=== PATIENT | female | born 1980 | race Hispanic/Latino ===

== ENCOUNTER 2017-04-10 20:49 | Emergency (ER) | payer SELFPAY ==
[2017-04-10] MEDS ORDERED: Lidocaine 1% (PF) 30 ML VIAL ONE (21:02)
[2017-04-10] MEDS ORDERED: Adacel (T-DAP) 0.5 ML VIAL ONE (21:36)
== END 2017-04-10 22:00 | disposition home or self-care (01) ==
LOC: ERS 20:49
DX: L02.31 Cutaneous abscess of buttock (principal); E11.9 Type 2 diabetes mellitus without complications; M19.90 Unspecified osteoarthritis, unspecified site; Z23 Encounter for immunization; Z79.4 Long term (current) use of insulin; Z87.891 Personal history of nicotine dependence
CPT/HCPCS: 10060; 90471; 90715; J2001

== ENCOUNTER 2017-04-13 19:26 | Emergency (ER) | payer SELFPAY | END 2017-04-13 21:34 | disposition home or self-care (01) | LOC: ERS 19:26 | DX: Z48.817 Encounter for surgical aftercare following surgery on the skin and subcutaneous tissue (principal); Z48.01 Encounter for change or removal of surgical wound dressing; E11.9 Type 2 diabetes mellitus without complications; M19.90 Unspecified osteoarthritis, unspecified site; F41.9 Anxiety disorder, unspecified; F32.9 Major depressive disorder, single episode, unspecified; F17.210 Nicotine dependence, cigarettes, uncomplicated | CPT/HCPCS: 99282 ==

== ENCOUNTER 2017-05-12 09:21 | Emergency (ER) | payer SELFPAY ==
[2017-05-12] MEDS ORDERED: Ibuprofen 200 MG TAB ONE (09:58)
--- NOTE | 2017-05-12 13:33 | RAD ---
FOUR VIEWS LEFT ELBOW: DATE: 05/12/17. History Left elbow pain for several weeks. Pain is worse after falling 1 day ago. FINDINGS: There is no evidence of a fracture, dislocation, other osseous abnormality. No joint effusion is anai reciated. IMPRESSION: No acute osseous abnormality left elbow. POS: [facility]
== END 2017-05-12 11:24 | disposition home or self-care (01) ==
LOC: ERS 09:21
DX: M77.12 Lateral epicondylitis, left elbow (principal); E11.9 Type 2 diabetes mellitus without complications; F41.9 Anxiety disorder, unspecified; F32.9 Major depressive disorder, single episode, unspecified; F17.210 Nicotine dependence, cigarettes, uncomplicated; Z79.4 Long term (current) use of insulin
CPT/HCPCS: 99406

== ENCOUNTER 2017-06-30 05:26 | Inpatient (IN) | payer SELFPAY ==
[2017-06-30] MEDS ORDERED: Ondansetron HCl/PF 4 MG/2 ML Vial ONE (05:42)
[2017-06-30 05:59] LABS: #Basophils 0.1 thou/uL (0.0-0.2); #Lymphocytes 1.9 thou/uL (1.20-3.40); #Monocytes 0.9 thou/uL (0.11-0.59); #Neutrophils 13.9 thou/uL (1.40-6.50); %Basophils 0.4 % (0.0-1.0); %Eosinophils 0.2 % (0.0-10.0); %Lymphocytes 11.5 % (21.0-51.0); %Monocytes 5.5 % (0.0-10.0); %Neutrophils 82.5 % (42.0-75.0); Hemoglobin 17.9 g/dL (12.0-16.0); Mean Corpuscular HGB CONC 34.4 g/dL (32.0-36.0); Mean Corpuscular Hemoglobin 31.6 pg (27.0-31.0); Mean Platelet Volume 8.3 fL (7.4-10.4); Platelet Count 329 thou/uL (130-400); RBC Distribution Width 11.6 % (11.5-14.5); Red Blood Cell (RBC) Count 5.65 mill/uL (4.20-5.40); White Blood Cell (WBC) Count 16.8 thou/uL (4.8-10.8)
[2017-06-30 06:11] LABS: Base Excess-Venous -0.3 mmol/L (-30.0-30.0); Bicarbonate (HCO3v) 20.6 mmol/L (1.0-85.0); CO2 Tension (PvCO2) 25.9 mmHg (41.0-51.0); Calcium, Ionized 1.02 mmol/L (1.12-1.32); Hemoglobin - Calc 18.8 g/dL (12.0-18.0); Lactate 3.37 mmol/L (0.50-2.20); O2 Tension (PvO2) 40.6 mmHg (35.0-45.0); Potassium 3.8 mmol/L (3.4-4.7); T. Carbon Dioxide 21.4 mmol/L (1.0-85.0); vO2 Saturation-calc 82.1 % (0.0-100.0)
[2017-06-30 06:20] LABS: ALT (SGPT) 15 U/L (8-55); AST (SGOT) 13 U/L (5-34); Albumin 4.6 g/dL (3.5-5.0); Alkaline Phosphatase 106 U/L (40-150); Anion Gap 23 mmol/L (10-20); BUN (Urea Nitrogen) 16 mg/dL (7.0-18.7); Bilirubin, Total 2.1 mg/dL (0.2-1.2); Calc. Creatinine Clearance 0 mL/min (70-130); Calcium 10.3 mg/dL (7.8-10.44); Carbon Dioxide 20 mmol/L (22-29); Chloride 98 mmol/L (98-107); Estimated GFR-MDRD 75; Globulin 3.6 g/dL (2.4-3.5); Glucose 342 mg/dL (70-105); Potassium 4.2 mmol/L (3.5-5.1); Protein, Total 8.2 g/dL (6.0-8.3); Sodium 137 mmol/L (136-145)
[2017-06-30 06:21] LABS: BHCG - Serum Negative (NEGATIVE); Pregs Control Background? CLEAR/WHITE (CLR/WHITE); Pregs Control Bar Appear? YES (CONTROL BAR)
[2017-06-30 06:32] LABS: Acetaminophen Less than 6.0 mcg/mL (10.0-30.0); Alcohol Less than 10 mg/dL (Less than 10); Salicylate Less than 8.0 mg/dL (15.0-30.0)
[2017-06-30] MEDS ORDERED: Pantoprazole 40 MG VIAL ONE (06:35)
[2017-06-30] MEDS ORDERED: Metoclopramide HCl 10 MG/2 ML VIAL ONE (06:35)
[2017-06-30] MEDS ORDERED: diphenhydrAMINE 50 MG/ML VIAL ONE (06:35)
[2017-06-30] MEDS ORDERED: Insulin Regular 300 UNITS/3 ML VIAL ONE (07:52)
--- NOTE | 2017-06-30 09:09 | ULT ---
RIGHT UPPER QUADRANT ULTRASOUND: Date: 06/30/17 HISTORY: 37-year-old female with history of nausea and vomiting. FINDINGS: There is a nonmobile opacity with ring down artifact from the fundus of the gallbladder, possib ly a focal cholesterol polyp. No gallbladder wall thickening or pericholecystic fluid. Common bile du ct is 0.4 cm. Liver echogenicity is somewhat coarse. Visualized pancreas and right kidney are unremar kable. IMPRESSION: Possible small gallbladder cholesterol polyp. No overt gallstones or evidence for acute cholecystitis by ultrasound. No ductal dilatation. Coarse liver echogenicity. POS: [facility]
[2017-06-30 09:17] VITALS: BMI 23.7
[2017-06-30] MEDS ORDERED: Temazepam 15 MG CAP PO PRN (09:22)
[2017-06-30] MEDS ORDERED: hydrALAZINE 20 MG/ML VIAL SLOW IVP PRN (09:22)
[2017-06-30] MEDS ORDERED: Acetaminophen 325 MG TAB PO PRN (09:22)
[2017-06-30] MEDS ORDERED: Dextrose 5% in Water 1,000 ML IV PRN (09:22)
[2017-06-30] MEDS ORDERED: HYDROcodone/Acetaminophen 5/325 mg Tablet PO PRN (09:22)
[2017-06-30] MEDS ORDERED: Dextrose 50% Abboject 50 ML SYRINGE SLOW IVP PRN (09:22)
[2017-06-30] MEDS ORDERED: Docusate 100 MG CAP PO SCH (09:45)
[2017-06-30] MEDS ORDERED: Insulin Detemir 100 UNITS/ML 7 UNITS in Pre-Filled Syringe 1 EACH SC SCH (09:45)
[2017-06-30] MEDS: Sodium Chloride 0.9% 1,000 ML IV SCH ×2 (09:53→18:21)
[2017-06-30] MEDS: cefTRIAXone\\ROCEPHIN 2 GM in Sodium Chloride 0.9% 100 ML IVPB SCH (11:04)
[2017-06-30] MEDS: Metoclopramide HCl 10 MG/2 ML VIAL IVP SCH ×4 (11:37→21:21)
[2017-06-30 15:42] LABS: Bilirubin Negative (Negative); Blood, Urine Negative (Negative); Clarity CLOUDY (Clear); Glucose, Urine (Dipstick) >=1000 mg/dL (Negative); Leukocyte Small (Negative); Nitrite Negative (Negative); Protein, Urine (Dipstick) Trace mg/dL (Neg-Trace); Specific Gravity, Urine 1.029 (1.002-1.036); pH, Urine 6.5 (5.0-9.0)
[2017-06-30 15:45] LABS: Bacteria/HPF 4+ HPF (None Seen); Hyaline Casts/LPF 0-3 HYALINE CAST LPF (0-3 Hyaline); Squamous Epithelial 0-3 HPF (0-3)
[2017-06-30 15:47] LABS: Amphetamine Not Detected (NotDetected); Barbiturates Screen Not Detected (NotDetected); Benzodiazepine Screen Not Detected (NotDetected); Cocaine Metabolite Screen Detected (NotDetected); Medtox Control Line Valid? VALID (VALID); Medtox Reader # READER 4; Methadone Not Detected (NotDetected); Methamphetamine Not Detected (NotDetected); Opiate Screen Not Detected (NotDetected); Oxycodone Screen Not Detected (NotDetected); Phencyclidine (PCP) Not Detected (NotDetected); THC/Cannabinoid Screen Not Detected (NotDetected); Tricyclic Screen Not Detected (NotDetected)
[2017-06-30] MEDS: Insulin Detemir 100 UNITS/ML 7 UNITS in Pre-Filled Syringe 1 EACH SC SCH (21:23)
[2017-06-30] MEDS: Docusate 100 MG CAP PO SCH (21:23)
[2017-06-30] MEDS: Ondansetron HCl/PF 4 MG/2 ML Vial IVP PRN (23:30)
--- NOTE | 2017-07-01 01:03 | HP ---
CHIEF COMPLAINT: Nausea, vomiting and abdominal discomfort for the last 2 or 3 days. HISTORY OF PRESENT ILLNESS: This is a 37-year-old pleasant lady who was apparently in her usual stat e of health, came into the hospital with nausea, vomiting and abdominal pain, which got worse over e last 2 or 3 days. She uses insulin to control her diabetes, but over the last couple of days, when she checked her sugar, it was above 500. Because of the nausea and vomiting was not relieved and e cannot keep any food down, she came into the hospital for further evaluation and treatment. She de nies any cough, chest pain, diarrhea or dysuria. No fever, no chills. PAST MEDICAL HISTORY: Significant for diabetes, osteoarthritis and anxiety. ALLERGIES: SULFA. MEDICATIONS: Insulin, she does not know the name. She has used Lantus in the past. PAST SURGICAL HISTORY: Right inguinal surgery to remove abscess. SOCIAL HISTORY: Patient denies history of drug abuse, cocaine and opiates in the past. She admits o f snorting cocaine even a couple of days prior, tobacco use and also occasional alcohol use. FAMILY HISTORY: Negative for diabetes and hypertension. REVIEW OF SYSTEMS: Significant for nausea, vomiting and abdominal pain, otherwise no fever, no chill s, no headache, no appetite, no hearing loss, no latencies. No cough, no diarrhea, dysuria or polyur ia. No memory or mood changes. No neck pain. PHYSICAL EXAMINATION: VITAL SIGNS: Blood pressure is 127/81, breathing at 26 per minute, afebrile and pulse is 84. GENERAL: The patient is lying in bed in no apparent distress. HEENT: Atraumatic and normocephalic. Pupils are equal, round and reacting to light. Extraocular mo vements are intact. Mucous membranes are moist. NECK: Supple. No JVD. CHEST: Breath sounds heard. No rales or rhonchi. HEART: S1 and S2. No murmurs or gallops. ABDOMEN: Soft, some generalized mild tenderness. Bowel sounds are present. No guarding, no rigidit y. EXTREMITIES: No cyanosis, clubbing or edema. Distal pulses present. NEUROLOGIC: Alert, awake and oriented. No cranial deficits. No sensorimotor deficits. LABORATORY DATA: CK is 34, potassium is 4.2, creatinine is 0.8 and total bilirubin is 2.1. WBC coun t is 16.8 and hemoglobin is 17. PH is 7.5. ASSESSMENT AND PLAN: 1. Nausea, vomiting and abdominal pain, possibly secondary to impending diabetic ketoacidosis. The patient is feeling a little better after she got a couple of liters of bolus in the ER and some insul in and some symptomatic treatment for the nausea and vomiting at this point, but she is not in clear diabetic ketoacidosis. We will admit her to medical floor and aggressively hydrate her and put her o n insulin regimen long-acting and also insulin sliding scale. We will monitor her closely and the BM Ps closely to see if she gets into diabetic ketoacidosis and do the need for. 2. Elevated WBC count. We will follow urinalysis and chest x-ray to make sure she does not have any infection. We will empirically treat with Rocephin for now. 3. Tobacco use. She has been counseled on cocaine use. She has been counseled on alcohol use. 4. Sequential compression devices for deep venous thrombosis prophylaxis. I will follow the patient and make recommendations as clinical course evolves.
[2017-07-01] MEDS: Sodium Chloride 0.9% 1,000 ML IV SCH ×3 (01:30→18:20)
[2017-07-01] MEDS: Metoclopramide HCl 10 MG/2 ML VIAL IVP SCH ×2 (01:30→05:53)
[2017-07-01 04:12] LABS: #Lymphocytes 1.6 thou/uL (1.20-3.40); #Monocytes 0.8 thou/uL (0.11-0.59); #Neutrophils 8.6 thou/uL (1.40-6.50); %Basophils 0.4 % (0.0-1.0); %Eosinophils 0.4 % (0.0-10.0); %Lymphocytes 14.1 % (21.0-51.0); %Monocytes 6.9 % (0.0-10.0); %Neutrophils 78.3 % (42.0-75.0); Hemoglobin 14.8 g/dL (12.0-16.0); Mean Corpuscular HGB CONC 33.9 g/dL (32.0-36.0); Mean Corpuscular Hemoglobin 31.9 pg (27.0-31.0); Mean Corpuscular Volume 94.1 fl (81.0-99.0); Mean Platelet Volume 8.1 fL (7.4-10.4); Platelet Count 254 thou/uL (130-400); RBC Distribution Width 11.7 % (11.5-14.5); Red Blood Cell (RBC) Count 4.64 mill/uL (4.20-5.40)
[2017-07-01 04:31] LABS: ALT (SGPT) 10 U/L (8-55); AST (SGOT) 11 U/L (5-34); Albumin 3.6 g/dL (3.5-5.0); Alkaline Phosphatase 66 U/L (40-150); Anion Gap 13 mmol/L (10-20); BUN (Urea Nitrogen) 11 mg/dL (7.0-18.7); Bilirubin, Total 1.1 mg/dL (0.2-1.2); Calc. Creatinine Clearance 96 mL/min (70-130); Calcium 8.2 mg/dL (7.8-10.44); Carbon Dioxide 21 mmol/L (22-29); Chloride 105 mmol/L (98-107); Estimated GFR-MDRD Greater than 90; Globulin 2.8 g/dL (2.4-3.5); Glucose 246 mg/dL (70-105); Potassium 3.5 mmol/L (3.5-5.1); Protein, Total 6.4 g/dL (6.0-8.3); Sodium 135 mmol/L (136-145)
[2017-07-01] MEDS: Ondansetron HCl/PF 4 MG/2 ML Vial IVP PRN ×2 (09:05→18:12)
[2017-07-01] MEDS: Insulin Detemir 100 UNITS/ML 7 UNITS in Pre-Filled Syringe 1 EACH SC SCH ×2 (09:11→20:54)
[2017-07-01] MEDS: Docusate 100 MG CAP PO SCH ×2 (09:11→20:54)
[2017-07-01] MEDS ORDERED: Potassium Chloride 20 MEQ TAB PO SCH (11:45)
[2017-07-01] MEDS: cefTRIAXone\\ROCEPHIN 2 GM in Sodium Chloride 0.9% 100 ML IVPB SCH (11:49)
--- NOTE | 2017-07-01 12:32 | PDOC.PN ---
- Subjective Encounter Start Date: 07/01/17 Encounter Start Time: 12:31 Patient seen and examined. No new complaints. No overnight events - Objective MAR Reviewed: Yes Vital Signs & Weight: Vital Signs (12 hours) Temp Pulse Resp BP Pulse Ox 07/01/17 11:19 98.3 F 67 16 137/87 100 07/01/17 08:07 99.2 F 91 16 109/71 97 07/01/17 08:00 99.2 F 91 16 97 07/01/17 04:00 98.8 F 87 16 127/79 98 Weight Weight 117 lb 7 oz I&O: 06/30/17 07/01/17 07/02/17 06:59 06:59 06:59 Intake Total 3335 Output Total 900 Balance 2435 Result Diagrams: 07/01/17 03:50 07/01/17 03:50 Additional Labs: Accuchecks 07/01/17 07/01/17 06/30/17 11:19 05:40 19:22 POC Glucose 215 H 185 H 187 H 06/30/17 16:18 POC Glucose 182 H Phys Exam - Physical Examination Constitutional: NAD HEENT: PERRLA Neck: no JVD Respiratory: no rales Cardiovascular: no significant murmur Gastrointestinal: no distention Musculoskeletal: pulses present Neurological: moves all 4 limbs Psychiatric: A&O x 3 Dx/Plan (1) UTI (urinary tract infection) Status: Acute (2) Cocaine abuse Code(s): F14.10 - COCAINE ABUSE, UNCOMPLICATED Status: Acute (3) Diabetes mellitus Code(s): E11.9 - TYPE 2 DIABETES MELLITUS WITHOUT COMPLICATIONS Status: Acute (4) Nausea & vomiting Code(s): R11.2 - NAUSEA WITH VOMITING, UNSPECIFIED Status: Acute - Plan * cont current rx * f/u urine cul
[2017-07-01 12:50] LABS: Anion Gap 12 mmol/L (10-20); BUN (Urea Nitrogen) 9 mg/dL (7.0-18.7); Calc. Creatinine Clearance 101 mL/min (70-130); Calcium 8.6 mg/dL (7.8-10.44); Carbon Dioxide 24 mmol/L (22-29); Chloride 104 mmol/L (98-107); Estimated GFR-MDRD Greater than 90; Glucose 230 mg/dL (70-105); Sodium 136 mmol/L (136-145)
[2017-07-01] MEDS ORDERED: Metoclopramide HCl 10 MG/2 ML VIAL IVP SCH (20:30)
[2017-07-02 05:04] LABS: #Monocytes 0.8 thou/uL (0.11-0.59); %Basophils 0.5 % (0.0-1.0); %Eosinophils 0.4 % (0.0-10.0); %Lymphocytes 22.8 % (21.0-51.0); %Monocytes 8.8 % (0.0-10.0); %Neutrophils 67.5 % (42.0-75.0); Hemoglobin 14.5 g/dL (12.0-16.0); Mean Corpuscular HGB CONC 33.9 g/dL (32.0-36.0); Mean Corpuscular Hemoglobin 31.9 pg (27.0-31.0); Mean Corpuscular Volume 94.1 fl (81.0-99.0); Mean Platelet Volume 8.2 fL (7.4-10.4); Platelet Count 240 thou/uL (130-400); RBC Distribution Width 11.4 % (11.5-14.5); Red Blood Cell (RBC) Count 4.53 mill/uL (4.20-5.40); White Blood Cell (WBC) Count 8.8 thou/uL (4.8-10.8)
[2017-07-02] MEDS: Insulin Detemir 100 UNITS/ML 7 UNITS in Pre-Filled Syringe 1 EACH SC SCH ×2 (08:14→20:18)
[2017-07-02] MEDS: Docusate 100 MG CAP PO SCH ×2 (08:14→20:10)
[2017-07-02] MEDS: cefTRIAXone\\ROCEPHIN 2 GM in Sodium Chloride 0.9% 100 ML IVPB SCH (09:32)
[2017-07-02] MEDS: Ondansetron HCl/PF 4 MG/2 ML Vial IVP PRN ×2 (10:58→20:13)
[2017-07-02] MEDS: HumaLOG 300 UNITS/3 ML VIAL SC PRN ×3 (12:18→20:18)
[2017-07-02] MEDS: Sodium Chloride 0.9% 1,000 ML IV SCH ×2 (12:18→20:09)
[2017-07-02 12:30] LABS: Anion Gap 15 mmol/L (10-20); BUN (Urea Nitrogen) 8 mg/dL (7.0-18.7); Calc. Creatinine Clearance 107 mL/min (70-130); Calcium 8.4 mg/dL (7.8-10.44); Carbon Dioxide 20 mmol/L (22-29); Chloride 104 mmol/L (98-107); Estimated GFR-MDRD Greater than 90; Glucose 191 mg/dL (70-105); Potassium 4.1 mmol/L (3.5-5.1); Sodium 135 mmol/L (136-145)
--- NOTE | 2017-07-02 17:34 | PDOC.PN ---
- Subjective Encounter Start Date: 07/02/17 Encounter Start Time: 17:33 Patient seen and examined. No new complaints. No overnight events - Objective MAR Reviewed: Yes Vital Signs & Weight: Vital Signs (12 hours) Temp Pulse Resp BP Pulse Ox 07/02/17 08:00 99.0 F 94 16 103/73 97 Weight Weight 117 lb 7 oz I&O: 07/01/17 07/02/17 07/03/17 06:59 06:59 06:59 Intake Total 3335 120 Output Total 900 Balance 2435 120 Result Diagrams: 07/02/17 04:17 07/02/17 04:17 Additional Labs: Accuchecks 07/02/17 07/02/17 07/02/17 16:36 11:25 05:06 POC Glucose 182 H 251 H 180 H 07/01/17 20:03 POC Glucose 173 H Phys Exam - Physical Examination Constitutional: NAD HEENT: PERRLA Neck: no JVD Respiratory: no wheezing Cardiovascular: no significant murmur Gastrointestinal: non-tender Musculoskeletal: pulses present Neurological: moves all 4 limbs Psychiatric: A&O x 3 Dx/Plan (1) UTI (urinary tract infection) Status: Acute (2) Cocaine abuse Code(s): F14.10 - COCAINE ABUSE, UNCOMPLICATED Status: Acute (3) Diabetes mellitus Code(s): E11.9 - TYPE 2 DIABETES MELLITUS WITHOUT COMPLICATIONS Status: Acute (4) Nausea & vomiting Code(s): R11.2 - NAUSEA WITH VOMITING, UNSPECIFIED Status: Acute - Plan * cont current rx * f/u cultures
[2017-07-03] MEDS ORDERED: Guaifenesin DM 100-10/5 ML UDCUP PO PRN ×2 (03:08→03:09)
[2017-07-03 05:18] LABS: #Lymphocytes 2.6 thou/uL (1.20-3.40); #Monocytes 0.6 thou/uL (0.11-0.59); #Neutrophils 4.3 thou/uL (1.40-6.50); %Basophils 0.6 % (0.0-1.0); %Eosinophils 0.4 % (0.0-10.0); %Lymphocytes 34.2 % (21.0-51.0); %Monocytes 8.4 % (0.0-10.0); %Neutrophils 56.5 % (42.0-75.0); Mean Corpuscular HGB CONC 34.6 g/dL (32.0-36.0); Mean Corpuscular Hemoglobin 32.4 pg (27.0-31.0); Mean Corpuscular Volume 93.7 fl (81.0-99.0); Mean Platelet Volume 8.4 fL (7.4-10.4); Platelet Count 215 thou/uL (130-400); RBC Distribution Width 11.4 % (11.5-14.5); Red Blood Cell (RBC) Count 4.31 mill/uL (4.20-5.40); White Blood Cell (WBC) Count 7.6 thou/uL (4.8-10.8)
[2017-07-03] MEDS: HumaLOG 300 UNITS/3 ML VIAL SC PRN ×2 (05:47→11:55)
[2017-07-03] MEDS: Insulin Detemir 100 UNITS/ML 7 UNITS in Pre-Filled Syringe 1 EACH SC SCH (07:23)
[2017-07-03] MEDS: Docusate 100 MG CAP PO SCH (07:24)
[2017-07-03 08:41] VITALS: BP 93/61; TEMP 98.2
[2017-07-03] MEDS ORDERED: CEFTRIAXONE 2GM/50 ML BAG 2 GM in Premix Bag 1 BAG IVPB SCH (10:00)
--- NOTE | 2017-07-03 13:29 | PDOC.PN ---
- Subjective Encounter Start Date: 07/03/17 Encounter Start Time: 13:27 Patient seen and examined. No new complaints. No overnight events - Objective MAR Reviewed: Yes Vital Signs & Weight: Vital Signs (12 hours) Temp Pulse Resp BP Pulse Ox 07/03/17 08:00 98.2 F 73 16 98 07/03/17 07:40 98.2 F 73 16 93/61 98 Weight Weight 117 lb 7 oz I&O: 07/02/17 07/03/17 07/04/17 06:59 06:59 06:59 Intake Total 120 Balance 120 Result Diagrams: 07/03/17 04:35 07/02/17 04:17 Additional Labs: Accuchecks 07/03/17 07/03/17 07/02/17 11:46 04:16 20:19 POC Glucose 209 H 242 H 263 H 07/02/17 16:36 POC Glucose 182 H Phys Exam - Physical Examination Constitutional: NAD HEENT: PERRLA Neck: no JVD Respiratory: no rales Cardiovascular: no significant murmur Gastrointestinal: non-tender Musculoskeletal: pulses present Neurological: moves all 4 limbs Psychiatric: A&O x 3 Dx/Plan (1) UTI (urinary tract infection) Status: Acute Comment: culture negative (2) Cocaine abuse Code(s): F14.10 - COCAINE ABUSE, UNCOMPLICATED Status: Acute (3) Diabetes mellitus Code(s): E11.9 - TYPE 2 DIABETES MELLITUS WITHOUT COMPLICATIONS Status: Acute (4) Nausea & vomiting Code(s): R11.2 - NAUSEA WITH VOMITING, UNSPECIFIED Status: Acute - Plan * doing well * d/c home
--- NOTE | 2017-07-03 20:50 | DIS ---
DATE OF ADMISSION: 06/30/2017 DATE OF DISCHARGE: 07/03/2017 DISCHARGE DIAGNOSES: Urinary tract infection, resolved; nausea, vomiting, abdominal pain, resolved; elevated white count, resolved; tobacco use, resolved; cocaine use, resolved. DISCHARGE MEDICATIONS: Include Lantus 10 units subcu b.i.d., metformin 1000 mg p.o. once a day and c ontinuation of all other home medications. BRIEF HOSPITAL COURSE: A 37-year-old pleasant lady who came into the hospital with uncontrolled suga rs and elevated white count, nausea, vomiting, abdominal pain. She was also tested positive for coca ine. She was put on aggressive IV hydration and we put her on Levemir and insulin sliding scale. On ce her diet picked up, we adjusted the dose of the long-acting insulin. Right now, her urine culture s and blood cultures were all negative. She is doing much better. Abdominal pain, nausea and vomiti ng had resolved. She is right now medically stable to be discharged with outpatient follow up with Germaine JOHNSON. She is asked to come back to the emergency room in case symptoms recur. Total time for this discharge took 35 minutes.
[2017-07-03] MEDS ORDERED: Insulin Detemir 100 UNITS/ML 10 UNITS in Pre-Filled Syringe 1 EACH SC SCH (21:00)
== END 2017-07-03 14:12 | disposition home or self-care (01) | DRG 638 ==
LOC: ERS 05:26 → T4-A 09:11
PROVIDERS: ADMIT Internal Medicine; ATTEND Internal Medicine
DX: E11.65 Type 2 diabetes mellitus with hyperglycemia (principal); N39.0 Urinary tract infection, site not specified; D72.829 Elevated white blood cell count, unspecified; F14.10 Cocaine abuse, uncomplicated; F17.210 Nicotine dependence, cigarettes, uncomplicated; Z88.2 Allergy status to sulfonamides
CPT/HCPCS: 36415; 36416; 76705; 80048; 80053; 80306; 80307; 81001; 82010; 82330; 82550; 82803; 83605; 84703; 85025; 87040; 87086; 96361; 96374; 96375; 99406; C9113; J0696; J1200; J1815; J2405; J2765; J7050

== ENCOUNTER 2017-09-23 07:45 | Emergency (ER) | payer SELFPAY, OTHER | END 2017-09-23 08:40 | disposition home or self-care (01) | LOC: ERS 07:45 | DX: T63.301A Toxic effect of unspecified spider venom, accidental (unintentional), initial encounter; F17.210 Nicotine dependence, cigarettes, uncomplicated; M19.90 Unspecified osteoarthritis, unspecified site; E11.9 Type 2 diabetes mellitus without complications; F32.9 Major depressive disorder, single episode, unspecified; F41.9 Anxiety disorder, unspecified | CPT/HCPCS: 99282 ==

== ENCOUNTER 2017-10-08 13:39 | Emergency (ER) | payer SELFPAY ==
--- NOTE | 2017-10-08 14:41 | RAD ---
THREE VIEWS 5TH DIGIT RIGHT HAND: HISTORY: Swelling and redness. FINDINGS: AP, lateral, and oblique views 5th digit right hand obtained. Images demonstrate soft tissue swelling involving the distal aspect of the 5th digit. No evidence of acute fractures, subluxations, or bony lesions seen. No osseous lesion is noted. IMPRESSION: Soft tissue swelling distal 5th digit. No acute abnormalities seen. POS: [facility]
== END 2017-10-08 15:02 | disposition home or self-care (01) ==
LOC: ERS 13:39
DX: L03.011 Cellulitis of right finger (principal); E11.9 Type 2 diabetes mellitus without complications; M19.90 Unspecified osteoarthritis, unspecified site; F31.9 Bipolar disorder, unspecified; F41.9 Anxiety disorder, unspecified; F17.210 Nicotine dependence, cigarettes, uncomplicated; Z79.4 Long term (current) use of insulin; Z79.899 Other long term (current) drug therapy
CPT/HCPCS: 10060; 87070; 87205

== ENCOUNTER 2018-04-02 09:39 | Emergency (ER) | payer OTHER, SELFPAY | END 2018-04-02 11:16 | disposition left against medical advice (07) | LOC: ERS 09:39 | DX: Z53.21 Procedure and treatment not carried out due to patient leaving prior to being seen by health care provider (principal) ==

== ENCOUNTER 2018-04-20 11:44 | Emergency (ER) | payer SELFPAY ==
[2018-04-20] MEDS ORDERED: Lidocaine 1% (PF) 30 ML VIAL ONE (12:21)
[2018-04-20 12:46] LABS: Bilirubin Negative (Negative); Blood, Urine Trace (Negative); Clarity CLEAR (Clear); Glucose, Urine (Dipstick) >=1000 mg/dL (Negative); Leukocyte Negative (Negative); Nitrite Negative (Negative); Protein, Urine (Dipstick) Negative (Neg-Trace); Urobilinogen 0.2 mg/dL (0.2-1.0); pH, Urine 6.5 (5.0-9.0)
[2018-04-20 12:48] LABS: Bacteria/HPF 2+ HPF (None Seen); Hyaline Casts/LPF 0-3 HYALINE CAST LPF (0-3 Hyaline); RBC/HPF 0-3 HPF (0-3); Squamous Epithelial 0-3 HPF (0-3)
[2018-04-20 12:50] LABS: Pregnancy Test - Urine (BHCG) Negative (Negative); Pregu Control Background? CLEAR/WHITE (CLR/WHITE); Pregu Control Bar Appear? YES (CONTROL BAR)
[2018-04-20 13:27] LABS: #Lymphocytes 1.6 thou/uL (1.20-3.40); #Monocytes 0.5 thou/uL (0.11-0.59); #Neutrophils 7.1 thou/uL (1.40-6.50); %Basophils 0.4 % (0.0-1.0); %Eosinophils 0.4 % (0.0-10.0); %Lymphocytes 17.4 % (21.0-51.0); %Monocytes 5.6 % (0.0-10.0); %Neutrophils 76.2 % (42.0-75.0); Hemoglobin 15.5 g/dL (12.0-16.0); Mean Corpuscular HGB CONC 34.1 g/dL (32.0-36.0); Mean Corpuscular Hemoglobin 32.3 pg (27.0-31.0); Mean Corpuscular Volume 94.5 fL (78.0-98.0); Platelet Count 273 thou/uL (130-400); RBC Distribution Width 12.1 % (11.5-14.5); Red Blood Cell (RBC) Count 4.82 mill/uL (4.20-5.40); White Blood Cell (WBC) Count 9.3 thou/uL (4.8-10.8)
[2018-04-20 13:45] LABS: ALT (SGPT) 13 U/L (8-55); AST (SGOT) 18 U/L (5-34); Albumin 3.9 g/dL (3.5-5.0); Alkaline Phosphatase 76 U/L (40-150); Anion Gap 17 mmol/L (10-20); BUN (Urea Nitrogen) 11 mg/dL (7.0-18.7); Bilirubin, Total 0.5 mg/dL (0.2-1.2); Calc. Creatinine Clearance 0 mL/min (70-130); Calcium 8.6 mg/dL (7.8-10.44); Carbon Dioxide 20 mmol/L (22-29); Chloride 97 mmol/L (98-107); Estimated GFR-MDRD 58; Globulin 3.8 g/dL (2.4-3.5); Lipase 50 U/L (8-78); Potassium 4.6 mmol/L (3.5-5.1); Protein, Total 7.7 g/dL (6.0-8.3); Sodium 129 mmol/L (136-145)
[2018-04-20 13:47] LABS: Base Excess-Venous 0.2 mmol/L (0 (+/- 2.5)); Bicarbonate (HCO3v) 24.9 mmol/L (1.0-85.0); CO2 Tension (PvCO2) 39.7 mmHg (41.0-51.0); Calcium, Ionized 1.09 mmol/L (1.12-1.32); Hemoglobin - Calc 17.1 g/dL (12.0-18.0); O2 Tension (PvO2) 48.3 mmHg (35.0-45.0); Potassium 4.3 mmol/L (3.4-4.7); T. Carbon Dioxide 26.1 mmol/L (1.0-85.0); pH (Venous) 7.405 (7.35-7.45); vO2 Saturation-calc 83.9 % (94-98)
[2018-04-20 13:49] LABS: Glucose 694 mg/dL (70-105)
[2018-04-20] MEDS ORDERED: cefTRIAXone\\ROCEPHIN 2 GM VIAL ONE (14:09)
[2018-04-20] MEDS ORDERED: Sodium Chloride 0.9% 100 ML ONE (14:09)
[2018-04-20] MEDS ORDERED: Triple Antibiotic Oint 1 GM Packet ONE (14:09)
[2018-04-20] MEDS ORDERED: Insulin Regular 300 UNITS/3 ML VIAL ONE (14:15)
--- NOTE | 2018-04-20 14:18 | RAD ---
LEFT FOOT 3 VIEWS: HISTORY: Left foot pain. Wound in the left foot. The patient is a diabetic. FINDINGS/IMPRESSION: No fracture, dislocation, bony destruction, or periosteal reaction is seen. If there is high clinical suspicion for osteomyelitis, further evaluation with MRI would be helpful. POS: [facility]
[2018-04-20] MEDS ORDERED: Acetaminophen 500 MG TAB ONE (15:25)
== END 2018-04-20 15:56 | disposition home or self-care (01) ==
LOC: ERS 11:44
DX: L08.9 Local infection of the skin and subcutaneous tissue, unspecified (principal); E11.622 Type 2 diabetes mellitus with other skin ulcer; M19.90 Unspecified osteoarthritis, unspecified site; F31.9 Bipolar disorder, unspecified; F41.9 Anxiety disorder, unspecified; F17.210 Nicotine dependence, cigarettes, uncomplicated; Z79.84 Long term (current) use of oral hypoglycemic drugs; Z79.899 Other long term (current) drug therapy
CPT/HCPCS: 10060; 36415; 36416; 80053; 81003; 81015; 81025; 82010; 82330; 82803; 83690; 85025; 87040; 87070; 87077; 87149; 87186; 87205; 96361; 96365; 96375; J0696; J1815; J2001; J7050

== ENCOUNTER 2018-06-19 13:27 | Emergency (ER) | payer SELFPAY ==
[2018-06-19] MEDS ORDERED: Lidocaine 1% (PF) 30 ML VIAL ONE (14:22)
== END 2018-06-19 14:49 | disposition home or self-care (01) ==
LOC: ERS 13:27
DX: L02.31 Cutaneous abscess of buttock (principal); E11.9 Type 2 diabetes mellitus without complications; F31.9 Bipolar disorder, unspecified; F41.9 Anxiety disorder, unspecified; F32.9 Major depressive disorder, single episode, unspecified; F17.210 Nicotine dependence, cigarettes, uncomplicated; Z79.4 Long term (current) use of insulin
CPT/HCPCS: 10061; J2001

== ENCOUNTER 2018-09-08 17:48 | Emergency (ER) | payer SELFPAY ==
[2018-09-08 18:29] LABS: #Basophils 0.1 thou/uL (0.0-0.2); #Lymphocytes 2.5 thou/uL (1.20-3.40); #Monocytes 0.8 thou/uL (0.11-0.59); #Neutrophils 8.5 thou/uL (1.40-6.50); %Basophils 0.4 % (0.0-1.0); %Eosinophils 0.3 % (0.0-10.0); %Lymphocytes 21.2 % (21.0-51.0); %Monocytes 6.4 % (0.0-10.0); %Neutrophils 71.7 % (42.0-75.0); Hemoglobin 14.7 g/dL (12.0-16.0); Mean Corpuscular HGB CONC 34.2 g/dL (32.0-36.0); Mean Corpuscular Hemoglobin 32.1 pg (27.0-31.0); Mean Corpuscular Volume 93.7 fL (78.0-98.0); Platelet Count 273 thou/uL (130-400); RBC Distribution Width 11.9 % (11.5-14.5); Red Blood Cell (RBC) Count 4.57 mill/uL (4.20-5.40); White Blood Cell (WBC) Count 11.9 thou/uL (4.8-10.8)
[2018-09-08 18:43] LABS: Bilirubin Negative (Negative); Blood, Urine Trace (Negative); Clarity CLEAR (Clear); Glucose, Urine (Dipstick) >=1000 mg/dL (Negative); Leukocyte Negative (Negative); Nitrite Negative (Negative); Protein, Urine (Dipstick) Negative (Neg-Trace); Specific Gravity, Urine 1.038 (1.002-1.036)
[2018-09-08 18:44] LABS: Bacteria/HPF None Seen HPF (None Seen); Hyaline Casts/LPF 0-3 HYALINE CAST LPF (0-3 Hyaline); Pathc Cast-AUWi Flag 0.13 (0-2.49); Pregnancy Test - Urine (BHCG) Negative (Negative); Pregu Control Background? CLEAR/WHITE (CLR/WHITE); Pregu Control Bar Appear? YES (CONTROL BAR); Specific Gravity 1.038 (1.002-1.036); Squamous Epithelial 0-3 HPF (0-3); WBC/HPF 21-50 HPF (0-3)
[2018-09-08 18:47] LABS: ALT (SGPT) 16 U/L (8-55); AST (SGOT) 17 U/L (5-34); Albumin 3.5 g/dL (3.5-5.0); Alkaline Phosphatase 74 U/L (40-150); Anion Gap 12 mmol/L (10-20); BUN (Urea Nitrogen) 13 mg/dL (7.0-18.7); Bilirubin, Total 0.4 mg/dL (0.2-1.2); Calc. Creatinine Clearance 0 mL/min (70-130); Calcium 8.4 mg/dL (7.8-10.44); Carbon Dioxide 24 mmol/L (22-29); Chloride 105 mmol/L (98-107); Estimated GFR-MDRD 83; Globulin 2.9 g/dL (2.4-3.5); Glucose 303 mg/dL (70-105); Potassium 3.6 mmol/L (3.5-5.1); Protein, Total 6.4 g/dL (6.0-8.3); Sodium 137 mmol/L (136-145)
[2018-09-08] MEDS ORDERED: cefTRIAXone\\ROCEPHIN 2 GM VIAL ONE (18:50)
== END 2018-09-08 19:40 | disposition home or self-care (01) ==
LOC: ERS 17:48
DX: N12 Tubulo-interstitial nephritis, not specified as acute or chronic (principal); E11.9 Type 2 diabetes mellitus without complications; F31.9 Bipolar disorder, unspecified; F41.9 Anxiety disorder, unspecified; F17.210 Nicotine dependence, cigarettes, uncomplicated; M19.90 Unspecified osteoarthritis, unspecified site; Z79.4 Long term (current) use of insulin; Z79.899 Other long term (current) drug therapy
CPT/HCPCS: 36416; 80053; 81003; 81015; 81025; 85025; 96361; 96365; J0696

== ENCOUNTER 2018-10-21 19:24 | Emergency (ER) | payer SELFPAY | END 2018-10-21 22:26 | disposition left against medical advice (07) | LOC: ERS 19:24 | DX: Z53.21 Procedure and treatment not carried out due to patient leaving prior to being seen by health care provider (principal) ==

== ENCOUNTER 2018-12-07 12:06 | Emergency (ER) | payer SELFPAY ==
[2018-12-07 12:44] LABS: #Monocytes 0.5 thou/uL (0.11-0.59); #Neutrophils 5.1 thou/uL (1.40-6.50); %Basophils 0.4 % (0.0-1.0); %Eosinophils 0.3 % (0.0-10.0); %Lymphocytes 15.2 % (21.0-51.0); %Monocytes 7.1 % (0.0-10.0); Hemoglobin 15.1 g/dL (12.0-16.0); Mean Corpuscular HGB CONC 34.7 g/dL (32.0-36.0); Mean Corpuscular Hemoglobin 32.5 pg (27.0-31.0); Mean Corpuscular Volume 93.5 fL (78.0-98.0); Mean Platelet Volume 8.3 fL (7.4-10.4); Platelet Count 265 thou/uL (130-400); RBC Distribution Width 11.4 % (11.5-14.5); Red Blood Cell (RBC) Count 4.66 mill/uL (4.20-5.40); White Blood Cell (WBC) Count 6.6 thou/uL (4.8-10.8)
[2018-12-07 12:52] LABS: Bilirubin Negative (Negative); Blood, Urine Small (Negative); Clarity TURBID (Clear); Glucose, Urine (Dipstick) >=1000 mg/dL (Negative); Leukocyte Moderate (Negative); Nitrite Positive (Negative); Protein, Urine (Dipstick) Trace mg/dL (Neg-Trace); Specific Gravity, Urine 1.043 (1.002-1.036); Urobilinogen 0.2 mg/dL (0.2-1.0)
[2018-12-07 12:53] LABS: Bacteria/HPF 4+ HPF (None Seen); Hyaline Casts/LPF 4-6 HYALINE CAST LPF (0-3 Hyaline); Pathc Cast-AUWi Flag 1.76 (0-2.49); RBC/HPF 0-3 HPF (0-3)
[2018-12-07 12:54] LABS: BHCG - Serum Negative (NEGATIVE); Pregs Control Background? CLEAR/WHITE (CLR/WHITE); Pregs Control Bar Appear? YES (CONTROL BAR)
[2018-12-07 12:55] LABS: Yeast-AUWi Flag 62.2 (0-25.0)
[2018-12-07 13:02] LABS: Yeast-All Forms None Seen HPF (None Seen)
[2018-12-07] MEDS ORDERED: cefTRIAXone\\ROCEPHIN 1 GM VIAL ONE (13:08)
[2018-12-07 13:28] LABS: ALT (SGPT) 16 U/L (8-55); AST (SGOT) 15 U/L (5-34); Albumin 3.8 g/dL (3.5-5.0); Alkaline Phosphatase 90 U/L (40-150); Anion Gap 11 mmol/L (10-20); BUN (Urea Nitrogen) 11 mg/dL (7.0-18.7); Bilirubin, Total 1.2 mg/dL (0.2-1.2); Calc. Creatinine Clearance 0 mL/min (70-130); Calcium 8.7 mg/dL (7.8-10.44); Carbon Dioxide 25 mmol/L (22-29); Chloride 102 mmol/L (98-107); Estimated GFR-MDRD 82; Globulin 2.9 g/dL (2.4-3.5); Glucose 369 mg/dL (70-105); Protein, Total 6.7 g/dL (6.0-8.3); Sodium 134 mmol/L (136-145)
== END 2018-12-07 14:14 | disposition home or self-care (01) ==
LOC: ERS 12:06
DX: N12 Tubulo-interstitial nephritis, not specified as acute or chronic (principal); F31.9 Bipolar disorder, unspecified; F41.9 Anxiety disorder, unspecified; F17.210 Nicotine dependence, cigarettes, uncomplicated
CPT/HCPCS: 80053; 81003; 81015; 84703; 85025; 96365; J0696

== ENCOUNTER 2018-12-10 13:13 | Emergency (ER) | payer SELFPAY | END 2018-12-10 14:48 | disposition home or self-care (01) | LOC: ERS 13:13 | DX: E11.65 Type 2 diabetes mellitus with hyperglycemia (principal); E11.40 Type 2 diabetes mellitus with diabetic neuropathy, unspecified; M19.90 Unspecified osteoarthritis, unspecified site; F31.9 Bipolar disorder, unspecified; F41.9 Anxiety disorder, unspecified; F32.9 Major depressive disorder, single episode, unspecified; F17.210 Nicotine dependence, cigarettes, uncomplicated; Z79.84 Long term (current) use of oral hypoglycemic drugs; Z79.899 Other long term (current) drug therapy | CPT/HCPCS: 36416; 99284 ==

== ENCOUNTER 2019-03-06 12:13 | Emergency (ER) | payer SELFPAY ==
[2019-03-06] MEDS ORDERED: Acetaminophen 500 MG TAB ONE (12:36)
[2019-03-06] MEDS ORDERED: Adacel (T-DAP) 0.5 ML SYRINGE ONE (12:54)
--- NOTE | 2019-03-06 13:06 | RAD ---
Exam: XR Tib Fib Rt Leg 2 View HISTORY: Lacerations on lower right lower extremity secondary to glass. Right lower extremity pain. COMPARISON: None FINDINGS: No obvious radiopaque foreign body is visualized. There is lucency in the subcutaneous soft tissues s een anterior to the proximal tibia on the lateral projection which likely represents laceration. No acute fracture, dislocation, or other acute osseous abnormality is identified. IMPRESSION: 1. No acute osseous abnormality visualized. 2. No radiopaque foreign body visualized. 3. Laceration anterior subcutaneous soft tissues at the level of the proximal right tibia.
[2019-03-06] MEDS ORDERED: Lidocaine 1% w/Epinephrine 1:100K 20 ML VIAL ONE (13:08)
--- NOTE | 2019-03-06 13:09 | RAD ---
Exam: XR Tib Fib Lt Leg 2 View HISTORY: Multiple lacerations secondary to glass after: Through a window. COMPARISON: None FINDINGS: No radiopaque foreign body is seen. No acute fracture, dislocation, or other acute osseous abnormality is identified. IMPRESSION: No acute osseous abnormality or radiopaque foreign body is identified.
--- NOTE | 2019-03-06 13:11 | RAD ---
Exam: XR Knee Rt 4 View STANDARD HISTORY: Multiple lacerations to lower extremity secondary to crawling through a window related to broken glas s. COMPARISON: None FINDINGS: There is a small soft tissue defect and lucency seen anterior to the proximal right tibia related to laceration. No radiopaque foreign body is seen. There is a calcified lesion seen within the subcutaneous soft tissues just medial to the proximal right tibia probably due to small phlebolith. No acute fracture, dislocation, or other acute osseous abnormality is identified. IMPRESSION: 1. Subcutaneous soft tissue laceration anterior to proximal tibia. No radiopaque foreign body seen. 2. No acute osseous abnormality.
== END 2019-03-06 13:58 | disposition home or self-care (01) ==
LOC: ERS 12:13
DX: S51.012A Laceration without foreign body of left elbow, initial encounter (principal); S61.213A Laceration without foreign body of left middle finger without damage to nail, initial encounter; S81.011A Laceration without foreign body, right knee, initial encounter; S71.111A Laceration without foreign body, right thigh, initial encounter; E11.9 Type 2 diabetes mellitus without complications; M19.90 Unspecified osteoarthritis, unspecified site; F31.9 Bipolar disorder, unspecified; F41.9 Anxiety disorder, unspecified; F32.9 Major depressive disorder, single episode, unspecified; F17.210 Nicotine dependence, cigarettes, uncomplicated; Z79.4 Long term (current) use of insulin; Z23 Encounter for immunization; W25.XXXA Contact with sharp glass, initial encounter
CPT/HCPCS: 12004; 90471; 90715; 99283; J2001

== ENCOUNTER 2019-03-11 09:35 | Emergency (ER) | payer SELFPAY | END 2019-03-11 10:34 | disposition home or self-care (01) | LOC: ERS 09:35 | DX: G89.18 Other acute postprocedural pain (principal); M79.605 Pain in left leg; E11.9 Type 2 diabetes mellitus without complications; M19.90 Unspecified osteoarthritis, unspecified site; F31.9 Bipolar disorder, unspecified; F41.9 Anxiety disorder, unspecified; F17.210 Nicotine dependence, cigarettes, uncomplicated | CPT/HCPCS: 99283 ==

== ENCOUNTER 2019-03-14 05:39 | Emergency (ER) | payer SELFPAY | END 2019-03-14 06:02 | disposition home or self-care (01) | LOC: ERS 05:39 | DX: S81.011D Laceration without foreign body, right knee, subsequent encounter (principal); E11.9 Type 2 diabetes mellitus without complications; M19.90 Unspecified osteoarthritis, unspecified site; F31.9 Bipolar disorder, unspecified; F41.9 Anxiety disorder, unspecified; F17.210 Nicotine dependence, cigarettes, uncomplicated; W25.XXXD Contact with sharp glass, subsequent encounter ==

== ENCOUNTER 2020-06-30 10:40 | Emergency (ER) | payer SELFPAY ==
[2020-06-30] MEDS ORDERED: Ketorolac Tromethamine 30 MG/ML VIAL ONE (11:47)
[2020-06-30] MEDS ORDERED: Boostrix 0.5 ML (Tdap) VIAL ONE (11:47)
== END 2020-06-30 12:15 | disposition home or self-care (01) ==
LOC: ERS 10:40
DX: L02.811 Cutaneous abscess of head [any part, except face] (principal); E11.9 Type 2 diabetes mellitus without complications; M19.90 Unspecified osteoarthritis, unspecified site; F17.210 Nicotine dependence, cigarettes, uncomplicated; Z23 Encounter for immunization; Z79.4 Long term (current) use of insulin; Z79.899 Other long term (current) drug therapy; W22.8XXA Striking against or struck by other objects, initial encounter
CPT/HCPCS: 90471; 90715; 96372; J1885

== ENCOUNTER 2021-04-09 20:33 | Emergency (ER) | payer SELFPAY ==
[2021-04-09 21:15] LABS: Bilirubin Negative (Negative); Blood, Urine Negative (Negative); Clarity Turbid (Clear); Glucose, Urine (Dipstick) Greater than 1000 mg/dL (Negative); Ketone, Urine Negative (Negative); Leukocyte 500 Leu/uL (Negative); Nitrite Negative (Negative); Protein, Urine (Dipstick) 30 mg/dL (Neg-Trace); Specific Gravity, Urine 1.021 (1.002-1.036); Urobilinogen Normal mg/dL (Less than 2); WBC/HPF Greater than 50 HPF (0-3); pH, Urine 8.5 (5.0-9.0)
[2021-04-09 21:29] LABS: Bacteria/HPF 2+ HPF (None Seen); Squamous Epithelial 0-3 HPF (0-3)
[2021-04-09 21:30] LABS: Yeast-Budding 1+ HPF (None Seen); Yeast-Hyphae Rare HPF (None Seen)
[2021-04-09 21:32] LABS: #Basophils 0.1 thou/uL (0.0-0.2); #Eosinphils 0.1 thou/uL (0.0-0.7); #Lymphocytes 1.9 thou/uL (1.20-3.40); #Monocytes 0.5 thou/uL (0.11-0.59); #Neutrophils 8.9 thou/uL (1.40-6.50); %Basophils 0.5 % (0.0-1.0); %Eosinophils 0.6 % (0.0-10.0); %Lymphocytes 16.4 % (21.0-51.0); %Monocytes 4.7 % (0.0-10.0); %Neutrophils 77.8 % (42.0-75.0); Hemoglobin 15.2 g/dL (12.0-16.0); Mean Corpuscular HGB CONC 34.6 g/dL (32.0-36.0); Mean Corpuscular Hemoglobin 32.3 pg (27.0-31.0); Mean Corpuscular Volume 93.3 fL (78.0-98.0); Mean Platelet Volume 8.5 fL (7.4-10.4); Platelet Count 303 thou/uL (130-400); White Blood Cell (WBC) Count 11.5 thou/uL (4.8-10.8)
[2021-04-09] MEDS ORDERED: Ketorolac Tromethamine 30 MG/ML VIAL ONE (21:47)
[2021-04-09 21:50] LABS: BHCG - Serum Negative (NEGATIVE); Pregs Control Background? CLEAR/WHITE (CLR/WHITE); Pregs Control Bar Appear? YES (CONTROL BAR)
[2021-04-09 22:00] LABS: ALT (SGPT) 21 U/L (8-55); AST (SGOT) 13 U/L (5-34); Albumin 3.6 g/dL (3.5-5.0); Alkaline Phosphatase 99 U/L (40-110); Anion Gap 15 mmol/L (10-20); BUN (Urea Nitrogen) 12 mg/dL (7.0-18.7); Bilirubin, Total 0.7 mg/dL (0.2-1.2); Calc. Creatinine Clearance 0 mL/min (70-130); Calcium 8.8 mg/dL (7.8-10.44); Carbon Dioxide 26 mmol/L (22-29); Chloride 100 mmol/L (98-107); Globulin 3.3 g/dL (2.4-3.5); Glucose 355 mg/dL (70-105); Potassium 4.3 mmol/L (3.5-5.1); Protein, Total 6.9 g/dL (6.0-8.3); Sodium 137 mmol/L (136-145)
[2021-04-09] MEDS ORDERED: Fluconazole 100 MG TAB PO SCH (22:45)
== END 2021-04-09 23:49 | disposition home or self-care (01) ==
LOC: ERS 20:33
DX: N12 Tubulo-interstitial nephritis, not specified as acute or chronic (principal); B37.9 Candidiasis, unspecified; E11.65 Type 2 diabetes mellitus with hyperglycemia; M19.90 Unspecified osteoarthritis, unspecified site; F17.210 Nicotine dependence, cigarettes, uncomplicated
CPT/HCPCS: 36415; 74176; 80053; 81003; 81015; 84703; 85025; 96374; J1885

== ENCOUNTER 2021-06-11 | Emergency (ER) | payer MEDICAID, SELFPAY ==
[2021-06-11] MEDS ORDERED: Lidocaine 1% PF 5 ML VIAL ONE (00:34)
[2021-06-11] MEDS ORDERED: HYDROcodone/Acetaminophen 10/325 mg Tablet ONE (00:34)
== END 2021-06-11 01:14 | disposition home or self-care (01) ==
LOC: ERS
DX: L03.012 Cellulitis of left finger (principal); E11.9 Type 2 diabetes mellitus without complications; M19.90 Unspecified osteoarthritis, unspecified site; F17.210 Nicotine dependence, cigarettes, uncomplicated; Z79.4 Long term (current) use of insulin
CPT/HCPCS: 10060

== ENCOUNTER 2022-05-04 20:40 | Emergency (ER) | payer MEDICAID ==
[2022-05-04 21:17] LABS: #Basophils 0.1 thou/uL (0.0-0.2); #Eosinphils 0.2 thou/uL (0.0-0.7); #Lymphocytes 1.8 thou/uL (1.20-3.40); #Monocytes 0.5 thou/uL (0.11-0.59); #Neutrophils 6.3 thou/uL (1.40-6.50); %Basophils 0.9 % (0.0-1.0); %Eosinophils 2.4 % (0.0-10.0); %Monocytes 5.9 % (0.0-10.0); %Neutrophils 70.8 % (42.0-75.0); Hemoglobin 15.7 g/dL (12.0-16.0); Mean Corpuscular HGB CONC 33.8 g/dL (32.0-36.0); Mean Corpuscular Hemoglobin 32.3 pg (27.0-31.0); Mean Corpuscular Volume 95.6 fl (78.0-98.0); Mean Platelet Volume 8.6 fL (7.4-10.4); Platelet Count 337 10x3/uL (130-400); RBC Distribution Width 12.2 % (11.5-14.5); Red Blood Cell (RBC) Count 4.87 mill/uL (4.20-5.40); White Blood Cell (WBC) Count 8.9 10x3/uL (4.8-10.8)
[2022-05-04 21:35] LABS: ALT (SGPT) 17 U/L (8-55); AST (SGOT) 15 U/L (5-34); Albumin 3.9 g/dL (3.5-5.0); Alkaline Phosphatase 84 U/L (40-110); Anion Gap 13 mmol/L (10-20); BUN (Urea Nitrogen) 20 mg/dL (7.0-18.7); Bilirubin, Total 0.9 mg/dL (0.2-1.2); Calc. Creatinine Clearance 0 mL/min (70-130); Calcium 8.9 mg/dL (7.8-10.44); Carbon Dioxide 25 mmol/L (22-29); Chloride 101 mmol/L (98-107); Estimated GFR 51; Globulin 3.1 g/dL (2.4-3.5); Lipase 37 U/L (8-78); Potassium 4.2 mmol/L (3.5-5.1); Sodium 135 mmol/L (136-145)
[2022-05-04 21:39] LABS: Glucose 454 mg/dL (70-105)
[2022-05-04 23:29] LABS: Actual Bicarbonate (HCO3v) 24 mEq/L (22-28); Base Excess -0.6 mEq/L (-2.0 to +3.0); Calcium, Ionized (venous) 1.06 mmol/L (1.16-1.32); Chloride (VBG) 101 mmol/L (98-106); Hemoglobin (Hb) 15.9 g/dL (11.7-15.5); Sodium 132.7 mmol/L (133-146); pH (venous) 7.41 (7.32-7.43)
[2022-05-04 23:42] LABS: Phosphorus 2.9 mg/dL (2.3-4.7)
[2022-05-04 23:43] LABS: Magnesium 1.7 mg/dL (1.6-2.6)
== END 2022-05-05 00:27 | disposition home or self-care (01) ==
LOC: ERS 20:40
DX: R42 Dizziness and giddiness (principal); E11.9 Type 2 diabetes mellitus without complications; F17.210 Nicotine dependence, cigarettes, uncomplicated
CPT/HCPCS: 36415; 36416; 80053; 82010; 82805; 83690; 83735; 84100; 84484; 85025; 93005; 94760

== ENCOUNTER 2022-06-01 14:22 | Inpatient (IN) | payer MEDICAID, SELFPAY ==
[2022-06-01 15:12] LABS: #Lymphocytes 0.8 thou/uL (1.20-3.40); %Basophils 0.2 % (0.0-1.0); %Eosinophils 0.3 % (0.0-10.0); %Lymphocytes 5.9 % (21.0-51.0); %Monocytes 6.9 % (0.0-10.0); %Neutrophils 86.7 % (42.0-75.0); Hemoglobin 14.7 g/dL (12.0-16.0); Mean Corpuscular Hemoglobin 32.2 pg (27.0-31.0); Mean Corpuscular Volume 94.6 fl (78.0-98.0); Mean Platelet Volume 8.4 fL (7.4-10.4); Platelet Count 273 10x3/uL (130-400); RBC Distribution Width 11.4 % (11.5-14.5); Red Blood Cell (RBC) Count 4.56 mill/uL (4.20-5.40); White Blood Cell (WBC) Count 13.8 10x3/uL (4.8-10.8)
[2022-06-01] MEDS ORDERED: Iopamidol-370 76% 500 ML 1 ML ONE (15:15)
[2022-06-01 15:28] LABS: ALT (SGPT) 10 U/L (8-55); AST (SGOT) 9 U/L (5-34); Albumin 3.6 g/dL (3.5-5.0); Alkaline Phosphatase 102 U/L (40-110); Anion Gap 18 mmol/L (10-20); BUN (Urea Nitrogen) 11 mg/dL (7.0-18.7); Bilirubin, Total 1.3 mg/dL (0.2-1.2); Calc. Creatinine Clearance 0 mL/min (70-130); Calcium 9.3 mg/dL (7.8-10.44); Carbon Dioxide 18 mmol/L (22-29); Chloride 101 mmol/L (98-107); Estimated GFR 87; Glucose 281 mg/dL (70-105); Lipase 17 U/L (8-78); Magnesium 1.8 mg/dL (1.6-2.6); Potassium 3.9 mmol/L (3.5-5.1); Protein, Total 7.6 g/dL (6.0-8.3); Sodium 133 mmol/L (136-145)
[2022-06-01 15:35] LABS: BHCG - Serum Negative (NEGATIVE); Pregs Control Background? CLEAR/WHITE (CLR/WHITE); Pregs Control Bar Appear? YES (CONTROL BAR)
[2022-06-01 16:10] LABS: Actual Bicarbonate (HCO3v) 19 mEq/L (22-28); Base Excess -5.1 mEq/L (-2.0 to +3.0); Calcium, Ionized (venous) 1.02 mmol/L (1.16-1.32); Chloride (VBG) 105 mmol/L (98-106); Hemoglobin (Hb) 13.8 g/dL (11.7-15.5); Potassium (VBG) 3.46 mmol/L (3.70-5.30); Sodium 134.7 mmol/L (133-146); pH (venous) 7.39 (7.32-7.43)
[2022-06-01] MEDS ORDERED: Ondansetron PF 4 MG/2 ML Vial ONE (16:20)
[2022-06-01] MEDS ORDERED: Ketorolac Tromethamine 30 MG/ML VIAL ONE (16:20)
[2022-06-01] MEDS ORDERED: Ondansetron ODT 4 MG TAB PO PRN (16:58)
[2022-06-01] MEDS ORDERED: Acetaminophen 325 MG TAB PO PRN (16:58)
[2022-06-01] MEDS ORDERED: Piperacillin/Tazobactam 4.5 GM VIAL ONE (16:59)
[2022-06-01] MEDS ORDERED: Enoxaparin Sodium 40 MG/0.4 ML SYRINGE SC SCH (17:00)
[2022-06-01 17:05] LABS: Bacteria/HPF 2+ HPF (None Seen); Bilirubin Negative (Negative); Blood, Urine 2+ (Negative); Clarity Turbid (Clear); Glucose, Urine (Dipstick) Greater than 1000 mg/dL (Negative); Ketone, Urine 80 mg/dL (Negative); Leukocyte 500 Leu/uL (Negative); Nitrite 2+ (Negative); Protein, Urine (Dipstick) 30 mg/dL (Neg-Trace); Specific Gravity, Urine 1.041 (1.002-1.036); Squamous Epithelial 0-3 HPF (0-3); Urobilinogen Normal mg/dL (Less than 2); WBC/HPF Greater than 50 HPF (0-3)
[2022-06-01] MEDS ORDERED: HumaLOG 300 UNITS/3 ML VIAL SC PRN (17:30)
[2022-06-01] MEDS ORDERED: Dextrose 5% in Water 1,000 ML IV PRN (17:30)
[2022-06-01] MEDS ORDERED: Dextrose 50% Abboject 50 ML SYRINGE SLOW IVP PRN (17:30)
[2022-06-01] MEDS: Sodium Chloride 0.9% 1,000 ML IV SCH (22:12)
[2022-06-01] MEDS: Ondansetron PF 4 MG/2 ML Vial IVP PRN (22:14)
[2022-06-01] MEDS: Piperacillin/Tazobactam 3.375 GM in Sodium Chloride 0.9% 100 ML IVPB SCH (22:15)
[2022-06-01] MEDS: Nicotine 14 MG PATCH TD SCH (22:16)
[2022-06-01 22:41] LABS: Amphetamine Detected (NotDetected); Barbiturates Screen Not Detected (NotDetected); Benzodiazepine Screen Not Detected (NotDetected); Cocaine Metabolite Screen Detected (NotDetected); Methadone Not Detected (NotDetected); Methamphetamine Detected (NotDetected); Opiate Screen Not Detected (NotDetected); Oxycodone Screen Not Detected (NotDetected); Phencyclidine (PCP) Not Detected (NotDetected); THC/Cannabinoid Screen Not Detected (NotDetected); Tricyclic Screen Not Detected (NotDetected)
[2022-06-01 23:29] VITALS: BMI 23.2
[2022-06-02] MEDS ORDERED: Promethazine HCl 25 MG in Sodium Chloride 0.9% 50 ML IVPB SCH (01:45)
[2022-06-02] MEDS: Piperacillin/Tazobactam 3.375 GM in Sodium Chloride 0.9% 100 ML IVPB SCH ×3 (05:28→21:57)
[2022-06-02] MEDS: HumaLOG 300 UNITS/3 ML VIAL SC PRN (05:31)
[2022-06-02] MEDS: Ondansetron PF 4 MG/2 ML Vial IVP PRN (06:04)
[2022-06-02] MEDS: Sodium Chloride 0.9% 1,000 ML IV SCH ×2 (06:15→10:55)
[2022-06-02 10:18] LABS: #Lymphocytes 0.9 thou/uL (1.20-3.40); #Monocytes 1.2 thou/uL (0.11-0.59); #Neutrophils 11.1 thou/uL (1.40-6.50); %Basophils 0.2 % (0.0-1.0); %Eosinophils 0.1 % (0.0-10.0); %Lymphocytes 6.4 % (21.0-51.0); %Neutrophils 84.3 % (42.0-75.0); Mean Corpuscular HGB CONC 33.9 g/dL (32.0-36.0); Mean Corpuscular Hemoglobin 32.7 pg (27.0-31.0); Mean Corpuscular Volume 96.5 fl (78.0-98.0); Mean Platelet Volume 8.3 fL (7.4-10.4); Platelet Count 273 10x3/uL (130-400); RBC Distribution Width 11.3 % (11.5-14.5); Red Blood Cell (RBC) Count 3.99 mill/uL (4.20-5.40); White Blood Cell (WBC) Count 13.2 10x3/uL (4.8-10.8)
[2022-06-02 10:40] LABS: Anion Gap 18 mmol/L (10-20); BUN (Urea Nitrogen) 12 mg/dL (7.0-18.7); Calc. Creatinine Clearance 81 mL/min (70-130); Calcium 8.1 mg/dL (7.8-10.44); Carbon Dioxide 17 mmol/L (22-29); Chloride 107 mmol/L (98-107); Estimated GFR 103; Glucose 236 mg/dL (70-105); Potassium 3.5 mmol/L (3.5-5.1); Sodium 138 mmol/L (136-145)
[2022-06-02] MEDS ORDERED: Ondansetron PF 4 MG/2 ML Vial IVP SCH (10:45)
[2022-06-02] MEDS: Ketorolac Tromethamine 30 MG/ML VIAL IVP PRN (11:24)
[2022-06-02] MEDS ORDERED: Prochlorperazine Edisylate 10 MG in Sodium Chloride 0.9% 50 ML IVPB PRN (12:02)
[2022-06-02] MEDS ORDERED: Prochlorperazine Edisylate 10 MG in Sodium Chloride 0.9% 50 ML IVPB SCH (12:15)
[2022-06-02] MEDS: Nicotine 14 MG PATCH TD SCH (17:34)
[2022-06-02] MEDS: Prochlorperazine Edisylate 10 MG in Sodium Chloride 0.9% 50 ML IVPB PRN (20:50)
[2022-06-03] MEDS: Piperacillin/Tazobactam 3.375 GM in Sodium Chloride 0.9% 100 ML IVPB SCH (05:24)
[2022-06-03 06:41] LABS: Hemoglobin A1c 11.1 % (4.0-6.0)
[2022-06-03 06:42] LABS: #Lymphocytes 1.1 thou/uL (1.20-3.40); #Monocytes 1.2 thou/uL (0.11-0.59); %Basophils 0.4 % (0.0-1.0); %Eosinophils 0.3 % (0.0-10.0); %Lymphocytes 9.6 % (21.0-51.0); %Monocytes 10.2 % (0.0-10.0); %Neutrophils 79.5 % (42.0-75.0); Hemoglobin 13.1 g/dL (12.0-16.0); Mean Corpuscular HGB CONC 33.6 g/dL (32.0-36.0); Mean Corpuscular Hemoglobin 32.6 pg (27.0-31.0); Mean Platelet Volume 8.1 fL (7.4-10.4); Platelet Count 297 10x3/uL (130-400); RBC Distribution Width 11.5 % (11.5-14.5); Red Blood Cell (RBC) Count 4.01 mill/uL (4.20-5.40); White Blood Cell (WBC) Count 11.3 10x3/uL (4.8-10.8)
[2022-06-03 06:55] LABS: Anion Gap 16 mmol/L (10-20); BUN (Urea Nitrogen) 11 mg/dL (7.0-18.7); Calc. Creatinine Clearance 92 mL/min (70-130); Calcium 7.7 mg/dL (7.8-10.44); Carbon Dioxide 18 mmol/L (22-29); Chloride 103 mmol/L (98-107); Estimated GFR 113; Glucose 213 mg/dL (70-105); Potassium 3.8 mmol/L (3.5-5.1); Sodium 133 mmol/L (136-145)
[2022-06-03] MEDS: Sodium Chloride 0.9% 1,000 ML IV SCH (08:37)
[2022-06-03] MEDS ORDERED: Insulin Glargine 30 UNITS/0.3 ML VIAL SC SCH ×2 (09:00→13:20)
[2022-06-03] MEDS: Ketorolac Tromethamine 30 MG/ML VIAL IVP PRN (11:55)
[2022-06-03] MEDS: Prochlorperazine Edisylate 10 MG in Sodium Chloride 0.9% 50 ML IVPB PRN (13:14)
[2022-06-03] MEDS: cefTRIAXone\\ROCEPHIN 2 GM in Sodium Chloride 0.9% 100 ML IVPB SCH (13:14)
[2022-06-03] MEDS: Sucralfate 1 GM/10 ML UDCUP PO SCH ×2 (17:34→19:48)
[2022-06-03] MEDS: Nicotine 14 MG PATCH TD SCH (17:34)
[2022-06-03] MEDS: Ondansetron PF 4 MG/2 ML Vial IVP PRN (19:22)
[2022-06-03] MEDS: Enoxaparin Sodium 40 MG/0.4 ML SYRINGE SC SCH (19:46)
[2022-06-04] MEDS: Ketorolac Tromethamine 30 MG/ML VIAL IVP PRN (06:26)
[2022-06-04] MEDS: Sucralfate 1 GM/10 ML UDCUP PO SCH ×4 (08:54→20:28)
[2022-06-04] MEDS: Ondansetron PF 4 MG/2 ML Vial IVP PRN ×2 (08:54→17:27)
[2022-06-04 09:28] LABS: #Basophils 0.1 thou/uL (0.0-0.2); #Eosinphils 0.1 thou/uL (0.0-0.7); #Lymphocytes 1.4 thou/uL (1.20-3.40); #Monocytes 1.1 thou/uL (0.11-0.59); #Neutrophils 5.5 thou/uL (1.40-6.50); %Basophils 0.8 % (0.0-1.0); %Eosinophils 0.8 % (0.0-10.0); %Lymphocytes 17.4 % (21.0-51.0); %Monocytes 13.3 % (0.0-10.0); %Neutrophils 67.7 % (42.0-75.0); Hemoglobin 13.5 g/dL (12.0-16.0); Mean Corpuscular HGB CONC 34.7 g/dL (32.0-36.0); Mean Corpuscular Hemoglobin 33.3 pg (27.0-31.0); Mean Platelet Volume 7.9 fL (7.4-10.4); Platelet Count 321 10x3/uL (130-400); RBC Distribution Width 11.5 % (11.5-14.5); Red Blood Cell (RBC) Count 4.04 mill/uL (4.20-5.40); White Blood Cell (WBC) Count 8.1 10x3/uL (4.8-10.8)
[2022-06-04 09:46] LABS: Phosphorus 1.6 mg/dL (2.3-4.7)
[2022-06-04 09:47] LABS: ALT (SGPT) 9 U/L (8-55); AST (SGOT) 13 U/L (5-34); Albumin 2.6 g/dL (3.5-5.0); Alkaline Phosphatase 60 U/L (40-110); Anion Gap 13 mmol/L (10-20); BUN (Urea Nitrogen) 10 mg/dL (7.0-18.7); Bilirubin, Total 0.7 mg/dL (0.2-1.2); Calc. Creatinine Clearance 97 mL/min (70-130); Carbon Dioxide 22 mmol/L (22-29); Chloride 106 mmol/L (98-107); Estimated GFR 114; Glucose 134 mg/dL (70-105); Potassium 3.3 mmol/L (3.5-5.1); Protein, Total 5.6 g/dL (6.0-8.3); Sodium 138 mmol/L (136-145)
[2022-06-04] MEDS ORDERED: Electrolyte Replacement Protocol 1 EACH FS PRN (12:12)
[2022-06-04] MEDS ORDERED: Insulin Glargine 30 UNITS/0.3 ML VIAL SC SCH (12:16)
[2022-06-04] MEDS: HumaLOG 300 UNITS/3 ML VIAL SC PRN (12:24)
[2022-06-04] MEDS ORDERED: Potassium Phosphate 15 MMOL in Sodium Chloride 0.9% 100 ML IVPB SCH ×2 (12:45→14:00)
[2022-06-04] MEDS ORDERED: Magnesium 2 GM/50 ML(in water) 2 GM in Premix Bag 1 BAG IVPB SCH ×2 (12:45→14:00)
[2022-06-04] MEDS: cefTRIAXone\\ROCEPHIN 2 GM in Sodium Chloride 0.9% 100 ML IVPB SCH (12:50)
[2022-06-04] MEDS: Prochlorperazine Edisylate 10 MG in Sodium Chloride 0.9% 50 ML IVPB PRN (13:07)
[2022-06-04] MEDS: Nicotine 14 MG PATCH TD SCH (17:25)
[2022-06-04] MEDS: Enoxaparin Sodium 40 MG/0.4 ML SYRINGE SC SCH (20:28)
[2022-06-04 21:20] LABS: Potassium 3.7 mmol/L (3.5-5.1)
[2022-06-05 06:45] LABS: #Eosinphils 0.1 thou/uL (0.0-0.7); #Lymphocytes 1.7 thou/uL (1.20-3.40); #Monocytes 0.9 thou/uL (0.11-0.59); #Neutrophils 5.4 thou/uL (1.40-6.50); %Basophils 0.4 % (0.0-1.0); %Eosinophils 1.3 % (0.0-10.0); %Lymphocytes 21.3 % (21.0-51.0); %Monocytes 10.6 % (0.0-10.0); %Neutrophils 66.5 % (42.0-75.0); Mean Corpuscular HGB CONC 33.6 g/dL (32.0-36.0); Mean Corpuscular Hemoglobin 31.9 pg (27.0-31.0); Mean Platelet Volume 7.3 fL (7.4-10.4); Platelet Count 313 10x3/uL (130-400); RBC Distribution Width 11.6 % (11.5-14.5); Red Blood Cell (RBC) Count 4.09 mill/uL (4.20-5.40); White Blood Cell (WBC) Count 8.2 10x3/uL (4.8-10.8)
[2022-06-05 07:09] LABS: ALT (SGPT) 17 U/L (8-55); AST (SGOT) 18 U/L (5-34); Albumin 2.8 g/dL (3.5-5.0); Alkaline Phosphatase 61 U/L (40-110); Anion Gap 11 mmol/L (10-20); BUN (Urea Nitrogen) 5 mg/dL (7.0-18.7); Bilirubin, Total 0.5 mg/dL (0.2-1.2); Calc. Creatinine Clearance 94 mL/min (70-130); Calcium 7.9 mg/dL (7.8-10.44); Carbon Dioxide 25 mmol/L (22-29); Chloride 103 mmol/L (98-107); Estimated GFR 113; Glucose 222 mg/dL (70-105); Potassium 3.3 mmol/L (3.5-5.1); Protein, Total 5.8 g/dL (6.0-8.3); Sodium 136 mmol/L (136-145)
[2022-06-05 08:00] LABS: Phosphorus 2.8 mg/dL (2.3-4.7)
[2022-06-05] MEDS ORDERED: Potassium Chloride 20 MEQ TAB PO SCH (08:00)
[2022-06-05] MEDS ORDERED: Magnesium 2 GM/50 ML(in water) 2 GM in Premix Bag 1 BAG IVPB SCH (08:00)
[2022-06-05] MEDS: Sucralfate 1 GM/10 ML UDCUP PO SCH ×2 (08:58→13:42)
[2022-06-05] MEDS ORDERED: Cephalexin 250 MG CAP PO SCH (09:00)
[2022-06-05 12:14] LABS: Potassium 3.7 mmol/L (3.5-5.1)
[2022-06-05] MEDS: HumaLOG 300 UNITS/3 ML VIAL SC PRN (13:37)
[2022-06-05 13:43] VITALS: BP 154/95; TEMP 97.7
== END 2022-06-05 13:48 | disposition home or self-care (01) | DRG 872 ==
LOC: ERS 14:22 → T4-B 16:58
PROVIDERS: ADMIT Internal Medicine; ATTEND Internal Medicine
DX: A41.51 Sepsis due to Escherichia coli [E. coli] (principal); N12 Tubulo-interstitial nephritis, not specified as acute or chronic; Z20.822 Contact with and (suspected) exposure to COVID-19; E11.9 Type 2 diabetes mellitus without complications; M19.90 Unspecified osteoarthritis, unspecified site; F41.9 Anxiety disorder, unspecified; F31.9 Bipolar disorder, unspecified; F17.210 Nicotine dependence, cigarettes, uncomplicated; F15.10 Other stimulant abuse, uncomplicated; F14.10 Cocaine abuse, uncomplicated; Z79.4 Long term (current) use of insulin; Z79.84 Long term (current) use of oral hypoglycemic drugs; Z71.51 Drug abuse counseling and surveillance of drug abuser; Z79.899 Other long term (current) drug therapy
CPT/HCPCS: 36415; 36416; 74018; 74177; 80048; 80053; 80306; 81003; 81015; 82010; 82805; 83036; 83605; 83690; 83735; 84100; 84484; 84702; 84703; 85025; 87040; 87077; 87149; 87186; 93005; J0696; J0780; J1650; J1815; J1885; J2405; J2543; J2550; J3475; J3490; J7050; Q9967; U0003; U0005

== ENCOUNTER 2022-12-26 22:14 | Emergency (ER) | payer MEDICAID ==
[2022-12-26] MEDS ORDERED: Ketorolac Tromethamine 30 MG/ML VIAL ONE (23:13)
== END 2022-12-27 00:07 | disposition home or self-care (01) ==
LOC: ERS 22:14
DX: M19.042 Primary osteoarthritis, left hand (principal); E11.9 Type 2 diabetes mellitus without complications; F17.200 Nicotine dependence, unspecified, uncomplicated
CPT/HCPCS: 96372; J1885

== ENCOUNTER 2023-02-08 15:07 | Inpatient (IN) | payer SELFPAY ==
[2023-02-08] MEDS ORDERED: Ondansetron PF 4 MG/2 ML Vial ONE (15:27)
[2023-02-08 16:02] LABS: #Eosinphils 0.1 thou/uL (0.0-0.7); #Monocytes 0.6 thou/uL (0.11-0.59); #Neutrophils 8.4 thou/uL (1.40-6.50); %Basophils 0.4 % (0.0-1.0); %Eosinophils 0.6 % (0.0-10.0); %Lymphocytes 12.7 % (21.0-51.0); %Monocytes 5.6 % (0.0-10.0); %Neutrophils 80.4 % (42.0-75.0); Hematocrit 45.3 % (36.0-47.0); Hemoglobin 15.7 g/dL (12.0-16.0); Mean Corpuscular HGB CONC 34.7 g/dL (32.0-36.0); Mean Corpuscular Volume 89.3 fl (78.0-98.0); Mean Platelet Volume 10.9 fL (7.4-10.4); Platelet Count 396 10x3/uL (130-400); RBC Distribution Width 12.7 % (11.5-14.5); Red Blood Cell (RBC) Count 5.07 mill/uL (4.20-5.40); White Blood Cell (WBC) Count 10.4 10x3/uL (4.8-10.8)
[2023-02-08 16:25] LABS: ALT (SGPT) 18 U/L (8-55); AST (SGOT) 13 U/L (5-34); Albumin 4.2 g/dL (3.5-5.0); Alkaline Phosphatase 110 U/L (40-110); Anion Gap 15 mmol/L (10-20); BUN (Urea Nitrogen) 20 mg/dL (7.0-18.7); Bilirubin, Total 1.5 mg/dL (0.2-1.2); Calc. Creatinine Clearance 0 mL/min (70-130); Calcium 9.8 mg/dL (7.8-10.44); Carbon Dioxide 27 mmol/L (22-29); Chloride 100 mmol/L (98-107); Estimated GFR 69; Glucose 343 mg/dL (70-105); Magnesium 1.9 mg/dL (1.6-2.6); Potassium 3.9 mmol/L (3.5-5.1); Protein, Total 8.2 g/dL (6.0-8.3); Sodium 138 mmol/L (136-145)
[2023-02-08] MEDS ORDERED: Promethazine HCl 25 MG/ML VIAL ONE ×2 (17:02→20:49)
[2023-02-08] MEDS ORDERED: Morphine 4 MG/ML VIAL ONE (17:19)
[2023-02-08] MEDS ORDERED: Dextrose 50% Abboject 50 ML SYRINGE SLOW IVP PRN (23:04)
[2023-02-08] MEDS ORDERED: HumaLOG 300 UNITS/3 ML VIAL SC PRN (23:04)
[2023-02-08] MEDS ORDERED: Glucagon 1 MG/ML KIT IM PRN (23:04)
[2023-02-08] MEDS ORDERED: Dextrose 5% in Water 1,000 ML IV PRN (23:04)
[2023-02-08] MEDS ORDERED: Calcium Carbonate 500 MG ChewTAB PO PRN (23:06)
[2023-02-08] MEDS ORDERED: Ondansetron ODT 4 MG TAB PO PRN (23:06)
[2023-02-08] MEDS ORDERED: Senokot S 8.6-50 MG TAB PO PRN (23:06)
[2023-02-08] MEDS ORDERED: Insulin Regular 300 UNITS/3 ML VIAL IVP SCH (23:30)
[2023-02-08] MEDS ORDERED: Lactated Ringer's 1,000 ML IV SCH (23:59)
[2023-02-09 00:16] LABS: Hemoglobin A1c 10.9 % (4.0-6.0)
[2023-02-09] MEDS: Nicotine 14 MG PATCH TD SCH (01:01)
[2023-02-09] MEDS ORDERED: Ondansetron PF 4 MG/2 ML Vial IVP PRN (02:45)
[2023-02-09] MEDS: Promethazine HCl 12.5 MG in Sodium Chloride 0.9% 50 ML IVPB PRN ×2 (03:33→11:06)
[2023-02-09] MEDS ORDERED: Pantoprazole 40 MG VIAL IVP SCH (04:00)
[2023-02-09 07:37] LABS: #Monocytes 0.4 thou/uL (0.11-0.59); #Neutrophils 11.7 thou/uL (1.40-6.50); %Basophils 0.1 % (0.0-1.0); %Lymphocytes 9.6 % (21.0-51.0); %Neutrophils 86.9 % (42.0-75.0); Hematocrit 41.4 % (36.0-47.0); Hemoglobin 13.5 g/dL (12.0-16.0); Mean Corpuscular HGB CONC 32.6 g/dL (32.0-36.0); Mean Corpuscular Hemoglobin 31.3 pg (27.0-31.0); Platelet Count 327 10x3/uL (130-400); RBC Distribution Width 12.9 % (11.5-14.5); Red Blood Cell (RBC) Count 4.31 mill/uL (4.20-5.40); White Blood Cell (WBC) Count 13.5 10x3/uL (4.8-10.8)
[2023-02-09 07:46] LABS: Mean Corpuscular Volume 96.1 fl (78.0-98.0)
[2023-02-09 07:55] LABS: Anion Gap 18 mmol/L (10-20); BUN (Urea Nitrogen) 14 mg/dL (7.0-18.7); Calc. Creatinine Clearance 72 mL/min (70-130); Calcium 8.6 mg/dL (7.8-10.44); Carbon Dioxide 18 mmol/L (22-29); Chloride 106 mmol/L (98-107); Estimated GFR 100; Glucose 256 mg/dL (70-105); Potassium 3.9 mmol/L (3.5-5.1); Sodium 138 mmol/L (136-145)
[2023-02-09] MEDS ORDERED: Insulin Glargine 30 UNITS/0.3 ML VIAL SC SCH (09:00)
[2023-02-09] MEDS: metFORMIN 500 MG TAB PO SCH ×2 (09:48→10:00)
[2023-02-09] MEDS ORDERED: Morphine 2 MG/ML VIAL SLOW IVP PRN (10:08)
[2023-02-09] MEDS ORDERED: Metoclopramide HCl 10 MG/2 ML VIAL IVP PRN ×2 (10:09→10:10)
[2023-02-09 10:46] VITALS: BMI 20.9
[2023-02-09 11:53] LABS: Amphetamine Not Detected (NotDetected); Barbiturates Screen Not Detected (NotDetected); Benzodiazepine Screen Not Detected (NotDetected); Cocaine Metabolite Screen Detected (NotDetected); Methadone Not Detected (NotDetected); Methamphetamine Not Detected (NotDetected); Opiate Screen Detected (NotDetected); Oxycodone Screen Not Detected (NotDetected); Phencyclidine (PCP) Not Detected (NotDetected); THC/Cannabinoid Screen Not Detected (NotDetected); Tricyclic Screen Not Detected (NotDetected)
[2023-02-09] MEDS ORDERED: HumaLOG 300 UNITS/3 ML VIAL SC PRN (12:09)
[2023-02-09 13:22] LABS: Bilirubin Negative (Negative); Blood, Urine 3+ (Negative); Clarity Turbid (Clear); Glucose, Urine (Dipstick) Greater than 1000 mg/dL (Negative); Ketone, Urine 150 mg/dL (Negative); Leukocyte 25 Leu/uL (Negative); Nitrite Negative (Negative); Protein, Urine (Dipstick) 100 mg/dL (Neg-Trace); RBC/HPF Greater than 50 HPF (0-3); Specific Gravity, Urine 1.027 (1.002-1.036); Squamous Epithelial 0-3 HPF (0-3); Urobilinogen Normal mg/dL (Less than 2); WBC/HPF 21-50 HPF (0-3); pH, Urine 5.5 (5.0-9.0)
[2023-02-09 13:24] LABS: Bacteria/HPF 1+ HPF (None Seen)
[2023-02-09] MEDS: Lactated Ringer's 1,000 ML IV SCH (13:36)
[2023-02-09] MEDS: HumaLOG 300 UNITS/3 ML VIAL SC PRN (13:38)
[2023-02-09 15:14] LABS: Hematocrit 38.8 % (36.0-47.0); Hemoglobin 13.1 g/dL (12.0-16.0); Mean Corpuscular HGB CONC 33.8 g/dL (32.0-36.0); Mean Corpuscular Hemoglobin 31.2 pg (27.0-31.0); Mean Platelet Volume 10.3 fL (7.4-10.4); Platelet Count 321 10x3/uL (130-400); RBC Distribution Width 12.8 % (11.5-14.5); White Blood Cell (WBC) Count 11.8 10x3/uL (4.8-10.8)
[2023-02-09 15:22] LABS: Mean Corpuscular Volume 92.4 fl (78.0-98.0)
[2023-02-09] MEDS ORDERED: hydrALAZINE 20 MG/ML VIAL SLOW IVP PRN (19:30)
[2023-02-09] MEDS: Pantoprazole 40 MG VIAL IVP SCH (20:06)
[2023-02-10] MEDS: Nicotine 14 MG PATCH TD SCH (00:18)
[2023-02-10] MEDS: Lactated Ringer's 1,000 ML IV SCH (04:55)
[2023-02-10 07:26] LABS: #Eosinphils 0.1 thou/uL (0.0-0.7); #Monocytes 0.7 thou/uL (0.11-0.59); %Basophils 0.4 % (0.0-1.0); %Eosinophils 0.8 % (0.0-10.0); %Lymphocytes 19.6 % (21.0-51.0); %Monocytes 7.2 % (0.0-10.0); %Neutrophils 71.7 % (42.0-75.0); Hematocrit 41.7 % (36.0-47.0); Hemoglobin 14.4 g/dL (12.0-16.0); Mean Corpuscular HGB CONC 34.5 g/dL (32.0-36.0); Mean Corpuscular Hemoglobin 31.4 pg (27.0-31.0); Mean Corpuscular Volume 90.8 fl (78.0-98.0); Mean Platelet Volume 10.5 fL (7.4-10.4); Platelet Count 311 10x3/uL (130-400); RBC Distribution Width 12.7 % (11.5-14.5); Red Blood Cell (RBC) Count 4.59 mill/uL (4.20-5.40); White Blood Cell (WBC) Count 9.8 10x3/uL (4.8-10.8)
[2023-02-10 07:44] LABS: Anion Gap 14 mmol/L (10-20); BUN (Urea Nitrogen) 11 mg/dL (7.0-18.7); Calc. Creatinine Clearance 80 mL/min (70-130); Calcium 8.9 mg/dL (7.8-10.44); Carbon Dioxide 22 mmol/L (22-29); Chloride 102 mmol/L (98-107); Estimated GFR 111; Glucose 157 mg/dL (70-105); Potassium 3.4 mmol/L (3.5-5.1); Sodium 135 mmol/L (136-145)
[2023-02-10] MEDS: Pantoprazole 40 MG VIAL IVP SCH ×2 (08:19→20:41)
[2023-02-10] MEDS: Insulin Glargine 30 UNITS/0.3 ML VIAL SC SCH (08:19)
[2023-02-10] MEDS: Potassium Chloride 20 MEQ TAB PO SCH ×2 (11:42→11:43)
[2023-02-10] MEDS: Sodium Chloride 0.9% 1,000 ML IV SCH (13:35)
[2023-02-10] MEDS: cefTRIAXone\\ROCEPHIN 1 GM in Sodium Chloride 0.9% 100 ML IVPB SCH (13:35)
[2023-02-10] MEDS: Potassium Chloride 20 MEQ in Premix Bag 1 BAG IVPB SCH ×2 (13:36→14:48)
[2023-02-10] MEDS: HumaLOG 300 UNITS/3 ML VIAL SC PRN (21:25)
[2023-02-11] MEDS: Nicotine 14 MG PATCH TD SCH (00:26)
[2023-02-11] MEDS: Sodium Chloride 0.9% 1,000 ML IV SCH (04:52)
[2023-02-11] MEDS: HumaLOG 300 UNITS/3 ML VIAL SC PRN (05:57)
[2023-02-11 06:02] LABS: #Basophils 0.1 thou/uL (0.0-0.2); #Eosinphils 0.1 thou/uL (0.0-0.7); #Monocytes 0.6 thou/uL (0.11-0.59); %Basophils 0.7 % (0.0-1.0); %Eosinophils 1.6 % (0.0-10.0); %Lymphocytes 31.6 % (21.0-51.0); %Monocytes 8.8 % (0.0-10.0); Hematocrit 35.8 % (36.0-47.0); Hemoglobin 12.1 g/dL (12.0-16.0); Mean Corpuscular HGB CONC 33.8 g/dL (32.0-36.0); Mean Corpuscular Hemoglobin 31.6 pg (27.0-31.0); Mean Corpuscular Volume 93.5 fl (78.0-98.0); Mean Platelet Volume 10.5 fL (7.4-10.4); Platelet Count 260 10x3/uL (130-400); RBC Distribution Width 12.6 % (11.5-14.5); Red Blood Cell (RBC) Count 3.83 mill/uL (4.20-5.40)
[2023-02-11 06:26] LABS: Anion Gap 13 mmol/L (10-20); BUN (Urea Nitrogen) 11 mg/dL (7.0-18.7); Calc. Creatinine Clearance 78 mL/min (70-130); Calcium 8.1 mg/dL (7.8-10.44); Carbon Dioxide 20 mmol/L (22-29); Chloride 107 mmol/L (98-107); Estimated GFR 111; Glucose 302 mg/dL (70-105); Potassium 3.5 mmol/L (3.5-5.1); Sodium 136 mmol/L (136-145)
[2023-02-11] MEDS ORDERED: Midazolam HCl 2 mg/2 ml Vial ONE (09:55)
[2023-02-11] MEDS ORDERED: PROPOFOL 200 MG/20 ML VIAL ONE (09:58)
[2023-02-11] MEDS ORDERED: Lidocaine 1% PF 5 ML VIAL ONE (09:58)
[2023-02-11 10:02] LABS: BHCG - Serum Negative (NEGATIVE); Pregs Control Background? CLEAR/WHITE (CLR/WHITE); Pregs Control Bar Appear? YES (CONTROL BAR)
[2023-02-11] MEDS ORDERED: Promethazine HCl 25 MG/ML VIAL IM PRN (10:07)
[2023-02-11] MEDS ORDERED: Ondansetron HCl/PF 4 MG/2 ML Vial IVP PRN (10:07)
[2023-02-11] MEDS: Insulin Glargine 30 UNITS/0.3 ML VIAL SC SCH ×2 (10:18→11:48)
[2023-02-11] MEDS: Pantoprazole 40 MG VIAL IVP SCH ×2 (10:19→11:49)
[2023-02-11 11:21] VITALS: BP 118/84; TEMP 97.7
[2023-02-11] MEDS: cefTRIAXone\\ROCEPHIN 1 GM in Sodium Chloride 0.9% 100 ML IVPB SCH (11:55)
== END 2023-02-11 15:20 | disposition home or self-care (01) | DRG 381 ==
LOC: ERS 15:07 → SJJU 22:06 → OBSVTOIN 02-09 12:08
PROVIDERS: ADMIT Student in an Organized Health Care Education/Training Program; ATTEND Internal Medicine
PROC: 0DB38ZX Excision of Lower Esophagus, Via Natural or Artificial Opening Endoscopic, Diagnostic (ICD-10-PCS; principal; 2023-02-11)
DX: K22.10 Ulcer of esophagus without bleeding (principal); E87.20 Acidosis, unspecified; N39.0 Urinary tract infection, site not specified; F14.10 Cocaine abuse, uncomplicated; E11.9 Type 2 diabetes mellitus without complications; F41.9 Anxiety disorder, unspecified; M79.7 Fibromyalgia; F19.10 Other psychoactive substance abuse, uncomplicated; F31.9 Bipolar disorder, unspecified; Z79.899 Other long term (current) drug therapy; Z87.891 Personal history of nicotine dependence; Z98.890 Other specified postprocedural states
CPT/HCPCS: 36415; 36416; 76705; 80048; 80053; 80306; 81001; 82010; 83036; 83690; 83735; 84100; 84703; 85025; 87040; 87077; 87086; 88305; 88312; 88341; 88342; 93005; 96361; 96365; 96375; 96376; C9113; G0378; J0696; J1815; J2250; J2270; J2272; J2405; J2550; J2704; J3480; J3490; J7050; J7120

== ENCOUNTER 2023-07-04 19:25 | Emergency (ER) | payer SELFPAY ==
[2023-07-04] MEDS ORDERED: Ondansetron PF 4 MG/2 ML Vial ONE (19:37)
[2023-07-04 20:02] LABS: #Basophils 0.1 thou/uL (0.0-0.2); #Eosinphils 0.1 thou/uL (0.0-0.7); #Monocytes 0.8 thou/uL (0.11-0.59); #Neutrophils 8.8 thou/uL (1.40-6.50); %Basophils 0.4 % (0.0-1.0); %Eosinophils 1.2 % (0.0-10.0); %Monocytes 6.3 % (0.0-10.0); %Neutrophils 73.8 % (42.0-75.0); Hematocrit 44.9 % (36.0-47.0); Hemoglobin 16.3 g/dL (12.0-16.0); Mean Corpuscular HGB CONC 36.3 g/dL (32.0-36.0); Mean Corpuscular Hemoglobin 32.1 pg (27.0-31.0); Mean Corpuscular Volume 88.6 fl (78.0-98.0); Mean Platelet Volume 11.2 fL (7.4-10.4); Platelet Count 411 10x3/uL (130-400); RBC Distribution Width 12.2 % (11.5-14.5); Red Blood Cell (RBC) Count 5.07 mill/uL (4.20-5.40); White Blood Cell (WBC) Count 11.9 10x3/uL (4.8-10.8)
[2023-07-04] MEDS ORDERED: diphenhydrAMINE 50 MG/ML VIAL ONE (20:08)
[2023-07-04] MEDS ORDERED: Haloperidol Lactate 5 MG/ML VIAL ONE (20:09)
[2023-07-04 20:16] LABS: BHCG - Serum Negative (NEGATIVE); Pregs Control Background? CLEAR/WHITE (CLR/WHITE); Pregs Control Bar Appear? YES (CONTROL BAR)
[2023-07-04 20:21] LABS: Actual Bicarbonate (HCO3v) 24.6 mEq/L (22-28); Analyzer IN Cardio ER; Base Excess 0.9 mEq/L (-2.0 to +3.0); Calcium, Ionized (venous) 1.05 mmol/L (1.16-1.32); Chloride (VBG) 100 mmol/L (98-106); Hematocrit-VBG 44 % (36.0-47.0); Hemoglobin (Hb) 15.1 g/dL (11.7-15.5); Potassium (VBG) 3.97 mmol/L (3.70-5.30); Sodium 139 mmol/L (133-146); pH (venous) 7.446 (7.32-7.43)
[2023-07-04 20:25] LABS: ALT (SGPT) 18 U/L (8-55); AST (SGOT) 20 U/L (5-34); Albumin 4.3 g/dL (3.5-5.0); Alkaline Phosphatase 106 U/L (40-110); Anion Gap 20 mmol/L (10-20); BUN (Urea Nitrogen) 20 mg/dL (7.0-18.7); Bilirubin, Total 1.6 mg/dL (0.2-1.2); Calc. Creatinine Clearance 0 mL/min (70-130); Calcium 9.6 mg/dL (7.8-10.44); Carbon Dioxide 22 mmol/L (22-29); Chloride 97 mmol/L (98-107); Critical Call Chemistry NUR.KLH3 @2025; Estimated GFR 59; Globulin 4.3 g/dL (2.4-3.5); Glucose 457 mg/dL (70-105); Lipase 56 U/L (8-78); Potassium 4.6 mmol/L (3.5-5.1); Protein, Total 8.6 g/dL (6.0-8.3); Sodium 134 mmol/L (136-145)
[2023-07-04 20:40] LABS: Phosphorus 4.1 mg/dL (2.3-4.7)
== END 2023-07-04 22:07 | disposition home or self-care (01) ==
LOC: ERS 19:25
DX: R11.2 Nausea with vomiting, unspecified (principal); E86.0 Dehydration; E11.65 Type 2 diabetes mellitus with hyperglycemia; F17.200 Nicotine dependence, unspecified, uncomplicated
CPT/HCPCS: 36415; 36416; 80053; 82010; 82805; 83605; 83690; 83735; 84100; 84443; 84703; 85025; 93005; 96361; 96374; 96375; J1200; J1630; J2405

== ENCOUNTER 2023-10-16 17:46 | Emergency (ER) | payer SELFPAY | END 2023-10-16 18:46 | disposition home or self-care (01) | LOC: ERS 17:46 | DX: S39.012A Strain of muscle, fascia and tendon of lower back, initial encounter (principal); R19.7 Diarrhea, unspecified; F17.210 Nicotine dependence, cigarettes, uncomplicated; E11.40 Type 2 diabetes mellitus with diabetic neuropathy, unspecified; X58.XXXA Exposure to other specified factors, initial encounter | CPT/HCPCS: 99282 ==

== ENCOUNTER 2024-01-03 00:56 | Observation (INO) | payer SELFPAY ==
[2024-01-03 03:10] LABS: #Basophils 0.05 10x3/uL (0.0-0.2); %Basophils 0.4 % (0.0-1.0); %Eosinophils 1.5 % (0.0-10.0); %Lymphocytes 14.1 % (21.0-51.0); %Monocytes 4.8 % (0.0-10.0); %Neutrophils 78.8 % (42.0-75.0); Hematocrit 36.9 % (36.0-47.0); Hemoglobin 13.3 g/dL (12.0-16.0); Mean Corpuscular Hemoglobin 31.6 pg (27.0-31.0); Mean Corpuscular Volume 87.6 fL (78.0-98.0); Mean Platelet Volume 11.4 fL (7.4-10.4); Platelet Count 222 10x3/uL (130-400); RBC Distribution Width 12.1 % (11.5-14.5); Red Blood Cell (RBC) Count 4.21 mill/uL (4.20-5.40)
[2024-01-03 03:50] LABS: ALT (SGPT) 12 U/L (8-55); AST (SGOT) 14 U/L (5-34); Acetaminophen Less than 10 mcg/mL (10.0-30.0); Albumin 3.2 g/dL (3.5-5.0); Alcohol 77.5 mg/dL (Less than 10); Alkaline Phosphatase 97 U/L (40-110); Anion Gap 17 mmol/L (10-20); BUN (Urea Nitrogen) 18 mg/dL (7.0-18.7); Bilirubin, Total 0.5 mg/dL (0.2-1.2); Calc. Creatinine Clearance 0 mL/min (70-130); Calcium 8.3 mg/dL (7.8-10.44); Carbon Dioxide 18 mmol/L (22-29); Chloride 107 mmol/L (98-107); Estimated GFR 82; Globulin 3.7 g/dL (2.4-3.5); Glucose 234 mg/dL (70-105); Potassium 3.3 mmol/L (3.5-5.1); Protein, Total 6.9 g/dL (6.0-8.3); Salicylate Less than 8.0 mg/dL (15.0-30.0); Sodium 139 mmol/L (136-145)
[2024-01-03 05:57] VITALS: BMI 28.3
[2024-01-03] MEDS: Dextrose 5 %-0.45 % NaCl 1,000 ML IV SCH (06:31)
[2024-01-03] MEDS ORDERED: Lorazepam 1 MG TAB PO PRN (07:46)
[2024-01-03] MEDS ORDERED: Dextrose 5% in Water 1,000 ML IV PRN (07:46)
[2024-01-03] MEDS ORDERED: HumaLOG 300 UNITS/3 ML VIAL SC PRN (07:46)
[2024-01-03] MEDS ORDERED: Ondansetron ODT 4 MG TAB PO PRN (07:46)
[2024-01-03] MEDS ORDERED: Lorazepam 2 MG/ML VIAL IM PRN (07:46)
[2024-01-03] MEDS ORDERED: Dextrose 50% Abboject 50 ML SYRINGE SLOW IVP PRN (07:46)
[2024-01-03] MEDS ORDERED: Glucagon 1 MG/ML KIT IM PRN (07:46)
[2024-01-03] MEDS ORDERED: Electrolyte Replacement Protocol 1 EACH FS SCH (08:00)
[2024-01-03] MEDS ORDERED: Insulin Lispro 100 UNIT/ML 10 ML VIAL SC PRN (08:00)
[2024-01-03] MEDS: Folic Acid 1 MG TAB PO SCH (09:37)
[2024-01-03] MEDS: Lorazepam 1 MG TAB PO SCH (09:37)
[2024-01-03] MEDS: Pantoprazole DR 40 MG TAB PO SCH (09:37)
[2024-01-03] MEDS: Multivit, Therapeutic 1 TAB PO SCH (09:37)
[2024-01-03] MEDS: Thiamine HCl 200 MG/2 ML VIAL SLOW IVP SCH (09:37)
[2024-01-03] MEDS: Potassium Chloride 20 MEQ TAB PO SCH (09:37)
[2024-01-03 11:34] LABS: Magnesium 1.5 mg/dL (1.6-2.6)
[2024-01-03] MEDS: Acetaminophen 325 MG TAB PO SCH (12:38)
[2024-01-03 13:33] LABS: Bacteria/HPF 4+ HPF (None Seen); Bilirubin Negative (Negative); Blood, Urine 2+ (Negative); Clarity Turbid (Clear); Glucose, Urine (Dipstick) Greater than 1000 mg/dL (Negative); Ketone, Urine Negative (Negative); Leukocyte 500 Leu/uL (Negative); Nitrite Negative (Negative); Protein, Urine (Dipstick) 30 mg/dL (Neg-Trace); Specific Gravity, Urine 1.016 (1.002-1.036); Squamous Epithelial 0-3 HPF (0-3); Urobilinogen Normal mg/dL (Less than 2); WBC/HPF Greater than 50 HPF (0-3); Yeast-Budding 2+ HPF (None Seen)
[2024-01-03] MEDS: Magnesium 2 GM/50 ML(in water) 2 GM in Premix 1 BAG IVPB SCH (14:25)
[2024-01-04] MEDS: Nicotine 14 MG PATCH TD SCH (00:18)
[2024-01-04] MEDS ORDERED: Lorazepam 1 MG TAB PO PRN (07:46)
[2024-01-04 12:57] LABS: #Basophils 0.03 10x3/uL (0.0-0.2); %Basophils 0.4 % (0.0-1.0); %Eosinophils 1.9 % (0.0-10.0); %Lymphocytes 16.7 % (21.0-51.0); %Monocytes 5.6 % (0.0-10.0); %Neutrophils 74.5 % (42.0-75.0); Mean Corpuscular HGB CONC 34.3 g/dL (32.0-36.0); Mean Corpuscular Hemoglobin 31.6 pg (27.0-31.0); Mean Corpuscular Volume 92.1 fL (78.0-98.0); Mean Platelet Volume 10.7 fL (7.4-10.4); Platelet Count 286 10x3/uL (130-400); RBC Distribution Width 12.8 % (11.5-14.5)
[2024-01-04 13:53] LABS: Anion Gap 9 mmol/L (10-20); BUN (Urea Nitrogen) 13 mg/dL (7.0-18.7); Calc. Creatinine Clearance 109 mL/min (70-130); Calcium 8.1 mg/dL (7.8-10.44); Carbon Dioxide 21 mmol/L (22-29); Chloride 111 mmol/L (98-107); Estimated GFR 107; Glucose 154 mg/dL (70-105); Potassium 4.3 mmol/L (3.5-5.1); Sodium 137 mmol/L (136-145)
[2024-01-04 17:00] VITALS: BP 119/73; TEMP 98.5
[2024-01-05] MEDS ORDERED: Lorazepam 1 MG TAB PO PRN (07:46)
[2024-01-05] MEDS ORDERED: Lorazepam 0.5 MG TAB PO SCH (08:00)
[2024-01-06] MEDS ORDERED: Lorazepam 0.5 MG TAB PO PRN (07:46)
== END 2024-01-04 20:50 | disposition home or self-care (01) ==
LOC: ERS 00:56 → ERHOLD 05:37 → T4-A 09:10
PROVIDERS: ADMIT Internal Medicine; ATTEND Internal Medicine
DX: E10.649 Type 1 diabetes mellitus with hypoglycemia without coma (principal); F10.129 Alcohol abuse with intoxication, unspecified; E83.42 Hypomagnesemia; F17.210 Nicotine dependence, cigarettes, uncomplicated; D72.829 Elevated white blood cell count, unspecified; E87.6 Hypokalemia; E87.20 Acidosis, unspecified; Z79.899 Other long term (current) drug therapy
CPT/HCPCS: 36415; 36416; 80048; 80053; 80307; 81003; 81015; 82010; 83735; 85025; 94760; 96360; 96361; 96365; 96375; 96376; G0378; J3411; J3475; J7042